=== PATIENT | female | born 1995 | race Caucasian/White ===

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

== ENCOUNTER → 2017-02-05 | Outpatient (CLI) | payer MEDICAID ==
[~2017-02-05] MED LIST changes: +PREN1TAB86 PO
--- NOTE | 2017-02-05 19:57 | Diagnostic Imaging Report ---
INDICATION: survey TECHNIQUE: Multiple real-time grayscale images were obtained over the gravid uterus. COMPARISON: None during this FINDINGS: heart rate is 143 beats per minute. The placenta is anterior. No placenta previa. The cervix is 3.4 CM in length and is closed. There is adequate amniotic fluid seen. Three-vessel cord, four-chamber view, stomach, bladder, spine, the kidneys, and intracranial structures appear unremarkable. The growth parameters are: Biparietal diameter: 21 weeks and 3 days Head circumference: 22 weeks and 3 days Abdominal circumference: 23 weeks and one day Femur length: 22 weeks and 3 days These average at: 22 weeks and 3 days This compares to gestational age of 21 weeks and 4 days based on provided SONIDO of 06/14/2017. IMPRESSION: Live intrauterine . Completed survey. Dictated by: Dictated on workstation # [id number]
== END ==
LOC: RAD 09:52
PROVIDERS: ATTEND Obstetrics & Gynecology
DX: Z36.87 Encounter for antenatal screening for uncertain dates (principal); Z3A.22 22 weeks gestation of pregnancy
CPT/HCPCS: 76805

== ENCOUNTER 2017-03-13 13:48 | Inpatient (IN) | payer MEDICAID ==
[~2017-03-13] VITALS: Ht 172.7 cm; Wt 76.2 kg
[~2017-03-13 13:48] MED LIST changes: +NAPR-1070 PO; -NAPR550T PO; +OXYC-465 PO
[2017-03-13 14:08] VITALS: BP 105/55
[2017-03-13 14:44] LABS: BILIRUBIN,URINE NEGATIVE (NEGATIVE); KETONES,URINE NEGATIVE (NEGATIVE); LEUKOCYTE ESTERASE ,URINE 1+ (NEGATIVE); NITRITE,URINE NEGATIVE (NEGATIVE); PH,URINE 6.5 (5-9); PROTEIN,URINE NEGATIVE (NEGATIVE); UROBILINOGEN,URINE 4 MG/DL (NORMAL)
[2017-03-13 14:53] LABS: SQUAMOUS EPITHELIAL CELL,UR 0-2 /HPF; WBC,URINE 0-2 /HPF
[2017-03-13] MEDS ORDERED: NS IV 1000 ML 1,000 ML ONE (15:07)
[2017-03-13] MEDS ORDERED: NS 1000 ML IV BAG IV SCH (15:15)
[2017-03-13] MEDS ORDERED: NS IV 1000 ML 1,000 ML IV ONE (15:15)
[2017-03-13] MEDS ORDERED: morphine INJ 10 MG/ML 1ML (SYR OR VIAL) IVP ONE (15:15)
[2017-03-13] MEDS ORDERED: PROMETHAZINE INJ 25 MG/ML (PHENERGAN) AMP IVP ONE (15:15)
[2017-03-13 15:40] VITALS: BP 105/64
[2017-03-13 15:42] LABS: BASOPHILS # (AUTO) 0.1 10^3/uL (0.0-0.1); BASOPHILS % (AUTO) 0 % (0-10); EOSINOPHILS # (AUTO) 0.1 10^3/uL (0.0-0.3); EOSINOPHILS % (AUTO) 1 % (0-10); LYMPHOCYTES # (AUTO) 1.9 X 10^3 (1.0-4.0); LYMPHOCYTES % (AUTO) 15 % (12-44); MEAN CORPUSCULAR HEMOGLOBIN 33 PG (25-34); MEAN CORPUSCULAR HGB CONC 36 G/DL (32-36); MEAN CORPUSCULAR VOLUME 92 FL (80-99); MEAN PLATELET VOLUME 10.2 FL (7.4-10.4); MONOCYTES # (AUTO) 0.8 X 10^3 (0.0-1.0); MONOCYTES % (AUTO) 6 % (0-12); NEUTROPHILS # (AUTO) 9.7 X 10^3 (1.8-7.8); NEUTROPHILS % (AUTO) 77 % (42-75); PLATELET COUNT 279 10^3/uL (130-400); RED BLOOD COUNT 3.57 10^6/uL (4.35-5.85); RED CELL DISTRIBUTION WIDTH 12.8 % (10.0-14.5); WHITE BLOOD COUNT 12.5 10^3/uL (4.3-11.0)
[2017-03-13 16:12] LABS: ALANINE AMINOTRANSFERASE 14 U/L (0-55); ALBUMIN 3.5 GM/DL (3.2-4.5); ANION GAP 8 MMOL/L (5-14); ASPARTATE AMINO TRANSFERASE 14 U/L (5-34); BILIRUBIN,TOTAL 0.7 MG/DL (0.1-1.0); BLOOD UREA NITROGEN 10 MG/DL (7-18); BUN/CREATININE RATIO 21; CALCIUM 9.3 MG/DL (8.5-10.1); CARBON DIOXIDE 22 MMOL/L (21-32); CHLORIDE 106 MMOL/L (98-107); CREATININE SERUM 0.48 MG/DL (0.60-1.30); GFR ESTIMATED > 60; GLUCOSE 75 MG/DL (70-105); POTASSIUM 3.8 MMOL/L (3.6-5.0); SODIUM 136 MMOL/L (135-145); TOTAL PROTEIN 6.7 GM/DL (6.4-8.2)
[2017-03-13] MEDS: NS IV 1000 ML 1,000 ML IV SCH ×2 (16:47→20:32)
[2017-03-13] MEDS ORDERED: INFLUENZA TRIvalent 2017-2018 0.5 ML/45 MCG SYR IM ONE (18:00)
[2017-03-13] MEDS ORDERED: CATHETER FLUSH 10 ML SYR IV PRN (18:00)
[2017-03-13 20:30] VITALS: BP 86/40
[2017-03-13] MEDS: PROMETHAZINE INJ 25 MG/ML (PHENERGAN) AMP IVP PRN (20:31)
[2017-03-13] MEDS ORDERED: KETOROLAC 30 MG/ML VIAL IVP ONE (21:15)
[2017-03-13] MEDS ORDERED: TAMSULOSIN 0.4 MG (FLOMAX) CAP PO SCH (21:15)
--- NOTE | 2017-03-13 21:22 | History & Physical-OB/GYN ---
History of Present Illness History of Present Illness Reason for visit/HPI right flank pain, history of nephrolithiasis in Date of Admission Mar 13, 2017 at 13:48 Date Seen by Provider: Mar 13, 2017 Time Seen by Provider: 21:00 I consulted on this patient on 03/13/17 21:21 Attending Physician Mis Chaudhari DO Admitting Physician No,Local Physician Consult The is a 22 year old at 26+ weeks who presents with increasing right flank pain. Diagnosed with nephrolithiasis in at 25 weeks. Admitted then for IVF, IV antiemetics and pain medication. Sent home with pain medications. She has passed some debris but not the stone. She has not had hematuria. She does have nausea and has had emesis. Presented because pain has worsened. Allergies and Home Medications Allergies Coded Allergies: No Known Drug Allergies (Unverified , 08/14/15) Home Medications Oxycodone HCl/Acetaminophen 1 Each Tablet, 1 TAB PO Q4H PRN for PAIN, #30 Prescribed by: MIS CHAUDHARI on 03/16/17 0820 Vit W-Ca,Fe,FA(<1 mg) 1 Each Tablet, 1 EACH PO DAILY, (Reported) Tamsulosin HCl 0.4 Mg Cap, 0.4 MG PO q 6pm for 7 Days, #7 Prescribed by: MIS CHAUDHARI on 03/16/17 0820 Past Vzamtml-Hhfepm-Yvoesx Hx Patient Social History Smoking Status: Former Smoker Former Smoker, Quit: Jan 12, 2016 Type Used: Cigarettes Physical Abuse Screen: No Sexual Abuse: No Recent Foreign Travel: No Contact w/other who traveled: No Recent Hopitalizations: No Recent Infectious Disease Expo: No Immunizations Up To Date Pediatric: Yes Date of Influenza Vaccine: Jan 11, 2015 Seasonal Allergies Seasonal Allergies: No Surgeries Yes (L WRIST, RIGHT EAR RECONTRUCTION ) Ear Surgery, Orthopedic Respiratory No Cardiovascular Yes (SMALL HEART MURMUR) Neurological No Reproductive System Expected Date of Delivery: Mar 13, 2017 Hx : 2 Hx Para: 0 Hx Reproductive Disorders: Yes (left ovarian cyst) Sexually Transmitted Disease: No HIV/AIDS: No Female Reproductive Disorders: Menstrual Problems, Ovarian Cyst Genitourinary Yes UTI-Chronic Gastrointestinal Yes (REFLUX WHEN EATS SPICY FOOD ) Gastroesophageal Reflux Musculoskeletal Yes Chronic Back Pain Endocrine History of Endocrine Disorders: No HEENT History of HEENT Disorders: No Loss of Vision: Denies Hearing Impairment: Hard of Hearing Cancer No Psychosocial History of Psychiatric Problem: Yes Behavioral Health Disorders: Depression Integumentary History of Skin or Integumenta: Yes Skin/Integumentary Disorders: Eczema Blood Transfusions History of Blood Disorders: No Adverse Reaction to a Blood Tr: No Family Medical History Significant Family History: No Pertinent Family Hx Constitutional: no symptoms reported Physical Exam Physical Exam Vital Signs Vital Signs Date Time Temp Pulse Resp B/P (MAP) Pulse Ox O2 Delivery O2 Flow Rate FiO2 03/16/17 11:27 81 18 123/71 99 Room Air 03/16/17 09:54 81 18 123/71 03/16/17 08:55 98.5 81 18 123/71 (88) 99 Room Air 03/16/17 04:17 98.1 65 18 105/68 (80) 99 Room Air 03/15/17 23:50 97.8 84 18 111/64 (80) 97 Room Air 03/15/17 19:54 97.5 75 18 100/59 (73) 98 Room Air I & O 03/16/17 07:00 Intake Total 5490 ml Output Total 4375 ml Balance 1115 ml Capillary Refill : Labs General Appearance: Moderate Distress Respiratory: Chest Non Tender, Lungs Clear Cardiovascular: Regular Rate, Rhythm, No Edema Abdominal: normal bowel sounds, tenderness (right flank but no TTP. Mild CVA pain) Gynecology/General: Other (NE) Comments Good FHT Assessment/Plan Assessment and Plan nephrolithiasis in Admitted for IV fluid rehydration and antiemetics. Hyperhydration with IV fluids. Iv Morphine. Phenergan IV. Will repeat studies as needed but no need for US or CT at this time due to known stone. Last was 6 mm and non obstructed. Right hydronephrosis and hydroureter. Problems: MIS CHAUDHARI DO Mar 13, 2017 21:22
[2017-03-13] MEDS ORDERED: NIFEdipine ER 30 MG (PROCARDIA XL) TAB PO ONE (22:15)
[2017-03-13] MEDS ORDERED: NIFEdipine ER 60 MG (PROCARDIA XL) TAB PO ONE (22:26)
[2017-03-14 00:16] VITALS: BP 102/60
[2017-03-14] MEDS: NS IV 1000 ML 1,000 ML IV SCH ×6 (01:06→21:08)
[2017-03-14 04:10] VITALS: BP 110/63
[2017-03-14 08:42] VITALS: BP 108/53
[2017-03-14] MEDS: morphine INJ 10 MG/ML 1ML (SYR OR VIAL) IVP PRN ×2 (09:03→22:55)
--- NOTE | 2017-03-14 09:23 | Progress Note-Standard ---
Standard Progress Note Progress Notes/Assess & Plan Date Seen by Provider: Mar 14, 2017 Time Seen by Provider: 09:10 Progress/Assessment & Plan Continued pain. Has moved to the flank but more in the front. Some nausea requiring promethazine and received Morphine x 2 doses yesterday. Tried to start flomax but not on formulary. Will start Uroxatrol today but watch for hypotension. Category B. Also start Rocephin. Vital Signs 03/14/17 04:10 Temp 98.4 Pulse 71 Resp 18 B/P (MAP) 110/63 (79) Pulse Ox 99 O2 Delivery Room Air Nephrolithiasis in continue IVF hyperhydration Start alpha deandra Rocephin pain management. Hope to get her home tomorrow MIS CHAUDHARI DO Mar 14, 2017 09:23
[2017-03-14] MEDS ORDERED: cefTRIAXone INJECTION 1,000 MG in NS (IVPB) 50 ML IV ONE (09:30)
[2017-03-14] MEDS: ALFUZOSIN HCL 10 MG TAB (UROXATRAL) PO SCH ×2 (10:29→18:27)
[2017-03-14 13:20] VITALS: BP 111/61
[2017-03-14 16:07] VITALS: BP 110/66
[2017-03-14 20:00] VITALS: BP 116/64
[2017-03-14] MEDS: PROMETHAZINE INJ 25 MG/ML (PHENERGAN) AMP IVP PRN (22:18)
[2017-03-15] MEDS: NS IV 1000 ML 1,000 ML IV SCH ×6 (01:23→22:00)
[2017-03-15 02:30] VITALS: BP 108/60
[2017-03-15 09:00] VITALS: BP 120/56
[2017-03-15] MEDS ORDERED: HYDROcodone/APAP 7.5 MG/325 MG (LORTAB, LORCET PLUS) TABLET PO PRN (09:15)
[2017-03-15] MEDS ORDERED: cefTRIAXone 1 GM (ROCEPHIN) VIAL ONE (09:44)
[2017-03-15] MEDS ORDERED: NS (IVPB) 50 ML ONE (09:45)
[2017-03-15] MEDS: PROMETHAZINE INJ 25 MG/ML (PHENERGAN) AMP IVP PRN ×2 (11:22→19:48)
--- NOTE | 2017-03-15 12:46 | Progress Note-Standard ---
Standard Progress Note Progress Notes/Assess & Plan Date Seen by Provider: Mar 15, 2017 Time Seen by Provider: 12:45 Progress/Assessment & Plan NSTs reactive Has received 2 doses of promethezine. Changed to po lortab. States pain has moved more to the front but hasn't passed the stone. She is very sleepy right now due to recent promethazine. Has nausea with pain but also after pain meds. Encouraged promethazine. Vital Sign - Last 12Hours 03/15/17 03/15/17 02:30 09:00 Temp 99.6 98.2 Pulse 79 65 Resp 18 18 B/P (MAP) 108/60 (76) 120/56 (77) O2 Delivery Room Air Room Air right CVA tenderness NST reactive Nephrolithiasis in Plan dc home in am after an additional dose of alpha deandra, Rocephin and IV fluids. Continue pain meds and antiemetic. MIS CHAUDHARI DO Mar 15, 2017 12:46
[2017-03-15 17:00] VITALS: BP 114/69
[2017-03-15] MEDS: ALFUZOSIN HCL 10 MG TAB (UROXATRAL) PO SCH (17:03)
[2017-03-15 19:54] VITALS: BP 100/59
[2017-03-15 23:50] VITALS: BP 111/64
[2017-03-16] MEDS: NS IV 1000 ML 1,000 ML IV SCH ×2 (02:00→05:56)
[2017-03-16 04:17] VITALS: BP 105/68
--- NOTE | 2017-03-16 08:18 | Progress Note-Standard ---
Standard Progress Note Progress Notes/Assess & Plan Date Seen by Provider: Mar 16, 2017 Time Seen by Provider: 08:15 Progress/Assessment & Plan Overnight somewhat better. Only one episode of emesis. Did not request pain medications. Will plan to dc today on flomax and follow up in the office this week. Vital Sign - Last 12Hours 03/15/17 03/16/17 23:50 04:17 Temp 97.8 98.1 Pulse 84 65 Resp 18 18 B/P (MAP) 111/64 (80) 105/68 (80) Pulse Ox 97 99 O2 Delivery Room Air Room Air Nephrolithiasis in MIS CHAUDHARI DO Mar 16, 2017 08:18
[2017-03-16] MEDS ORDERED: TAMS0.4C98 PO (08:20)
[2017-03-16] MEDS ORDERED: OXYC-465 PO (08:20)
--- NOTE | 2017-03-16 08:25 | Discharge Inst-Women's Service ---
Discharge Inst-Women's Serv Depart Medication/Instructions New, Converted or Re-Newed RX: Other (Transmitted to pharmacy) Instructions continue flomax 1 po daily until gone Continue maximum fluid intake (at least 80 ml daily water) strain urine Final Diagnosis nephrolithiasis in (second trimester) Consults/Follow Up Additional Follow Up: Yes (has appt on Friday 03/23. Keep that appointment. Call [phone] if problems. ) Activity Activity: Activity as Tolerated Driving Instructions: You May Drive NO SMOKING: NO SMOKING Nothing Inside Vagina: No Douching, No [place], No Tampons Diet Discharge Diet: No Restrictions Symptoms to Report to : Numbness/Tingling, Bleeding Excessive, Pain Increased, Fever Over 101 Degrees F For Any Problems or Questions: Contact Your Physician MIS CHAUDHARI DO Mar 16, 2017 08:25
[2017-03-16] MEDS ORDERED: cefTRIAXone 1 GM (ROCEPHIN) VIAL ONE (08:44)
[2017-03-16] MEDS ORDERED: NS (IVPB) 50 ML ONE (08:45)
[2017-03-16 08:55] VITALS: BP 123/71
[2017-03-16] MEDS ORDERED: cefTRIAXone INJECTION 1,000 MG in NS (IVPB) 50 ML IV ONE (09:00)
[2017-03-16] MEDS ORDERED: KETOROLAC 30 MG/ML VIAL IVP ONE (09:00)
[2017-03-16 09:54] VITALS: BP 123/71
[2017-03-16 11:27] VITALS: BP 123/71
--- NOTE | 2017-03-16 19:29 | Discharge Summary ---
Diagnosis/Chief Complaint Date of Admission Mar 13, 2017 at 13:48 Date of Discharge Mar 16, 2017 at 11:27 Discharge Date: Mar 16, 2017 Admission Diagnosis Admission Diagnosis nephrolithiasis in Admitted for IV fluid rehydration and antiemetics. Hyperhydration with IV fluids. Iv Morphine. Phenergan IV. Will repeat studies as needed but no need for US or CT at this time due to known stone. Last was 6 mm and non obstructed. Right hydronephrosis and hydroureter. Reason Hospital Visit right flank pain, history of nephrolithiasis in Discharge Summary Procedures None. Discharge Physical Examination Allergies: Coded Allergies: No Known Drug Allergies (Unverified , 08/14/15) Vitals & I&Os Vital Signs Date Time Temp Pulse Resp B/P (MAP) Pulse Ox O2 Delivery O2 Flow Rate FiO2 03/16/17 11:27 81 18 123/71 99 Room Air 03/16/17 08:55 98.5 Discharge Home Medications Reviewed and agree with Discharge Medication list on patient's Discharge Instruction sheet Instructions to Patient/Family Please see electronic discharge instructions given to patient. MIS CHAUDHARI DO Mar 16, 2017 19:28
== END 2017-03-16 11:27 | disposition home or self-care (01) | DRG 781 ==
LOC: LDRP 13:48
PROVIDERS: ADMIT Obstetrics & Gynecology; ATTEND Obstetrics & Gynecology
DX: O26.892 Other specified pregnancy related conditions, second trimester (principal); N20.0 Calculus of kidney; O99.332 Smoking (tobacco) complicating pregnancy, second trimester; F17.210 Nicotine dependence, cigarettes, uncomplicated; Z3A.26 26 weeks gestation of pregnancy
CPT/HCPCS: 36415; 80053; 81000; 85025

== ENCOUNTER 2017-04-03 12:50 | Outpatient (CLI) | payer MEDICAID ==
[~2017-04-03] VITALS: Ht 172.7 cm; Wt 76.2 kg
[~2017-04-03 12:50] MED LIST changes: +TAMS0.4C98 PO
[2017-04-03 13:20] VITALS: BP 106/59
[2017-04-03] MEDS ORDERED: NS IV 1000 ML 1,000 ML ONE (13:23)
--- NOTE | 2017-04-03 14:20 | History & Physical-OB ---
OB - Chief Complaint & HPI Date/Time Date of Admission: Date of Admission: 04/03/2017 Time Seen by Provider: 14:20 Chief Complaint/History OB-Reason for Admission/Chief: Hx : 1 Hx Para: 0 Gestational Age in Weeks: 28 Other reason for admission: Patient with known history of nephrolithiasis presents in increasing right pelvic pain Admission Nurse Assessment Rev: Yes Allergies and Home Medications Allergies Coded Allergies: No Known Drug Allergies (Unverified , 08/14/15) Home Medications Oxycodone HCl/Acetaminophen 1 Each Tablet, 1 TAB PO Q4H PRN for PAIN, #30 Prescribed by: MIS CHAUDHARI on 03/16/17 0820 Vit W-Ca,Fe,FA(<1 mg) 1 Each Tablet, 1 EACH PO DAILY, (Reported) Tamsulosin HCl 0.4 Mg Cap, 0.4 MG PO q 6pm for 7 Days, #7 Prescribed by: MIS CHAUDHARI on 03/16/17 0820 OB - History Hx of Present Care: Yes Ultrasounds: Normal mid trimester US Obstetrical Complications: None Medical Complications: None Delivery History Hx Blood Disorders: No Adverse Rxn to Tranfusion: No Patient Past Medical History nephrolithiasis Social History/Family History HIV/AIDS: No Sexually Transmitted Disease: No Immunizations Date of Influenza Vaccine: Jan 11, 2015 OB - Admission Exam Physical Exam HEENT: NCAT Heart: Rhythm Normal Lungs: Clear Abdomen: Non tender (no CVA tenderness) Extremities: Normal Reflexes: Normal Heart Rate: 130's Accelerations: Accelerations Present Decelerations: No Decelerations Short Term Variability: Present Fdc Variability: Average (6-25) Contractions on Admission: None OB - Assessment/Plan/Diagnosis Assessment Assessment: other Plan Other Plan Treat pain with Morphine prn, IVF bolus. Checking for obstructive uropathy via CMP and US Will treat symptoms as needed if no obstructive Uropathy, otherwise will transfer to [facility]. Discharge Diagnosis Diagnosis: 22 yo @ 28 weeks Nephrolithisis ANA BRANNON DO Apr 03, 2017 2:20 pm
[2017-04-03 14:30] LABS: BASOPHILS % (AUTO) 0 % (0-10); EOSINOPHILS # (AUTO) 0.1 10^3/uL (0.0-0.3); EOSINOPHILS % (AUTO) 1 % (0-10); LYMPHOCYTES # (AUTO) 1.7 X 10^3 (1.0-4.0); LYMPHOCYTES % (AUTO) 19 % (12-44); MEAN CORPUSCULAR HEMOGLOBIN 32 PG (25-34); MEAN CORPUSCULAR HGB CONC 36 G/DL (32-36); MEAN CORPUSCULAR VOLUME 91 FL (80-99); MEAN PLATELET VOLUME 10.5 FL (7.4-10.4); MONOCYTES # (AUTO) 0.7 X 10^3 (0.0-1.0); MONOCYTES % (AUTO) 8 % (0-12); NEUTROPHILS # (AUTO) 6.5 X 10^3 (1.8-7.8); NEUTROPHILS % (AUTO) 72 % (42-75); PLATELET COUNT 233 10^3/uL (130-400); RED BLOOD COUNT 3.33 10^6/uL (4.35-5.85)
[2017-04-03] MEDS ORDERED: morphine INJ 10 MG/ML 1ML (SYR OR VIAL) IVP PRN (14:30)
[2017-04-03] MEDS ORDERED: NS IV 1000 ML 1,000 ML IV SCH (14:30)
[2017-04-03] MEDS ORDERED: CATHETER FLUSH 10 ML SYR IV PRN (14:45)
[2017-04-03 14:47] LABS: ALANINE AMINOTRANSFERASE 10 U/L (0-55); ALBUMIN 3.3 GM/DL (3.2-4.5); ANION GAP 9 MMOL/L (5-14); ASPARTATE AMINO TRANSFERASE 10 U/L (5-34); BILIRUBIN,TOTAL 0.6 MG/DL (0.1-1.0); BLOOD UREA NITROGEN 8 MG/DL (7-18); BUN/CREATININE RATIO 17; CALCIUM 8.4 MG/DL (8.5-10.1); CARBON DIOXIDE 20 MMOL/L (21-32); CHLORIDE 108 MMOL/L (98-107); CREATININE SERUM 0.47 MG/DL (0.60-1.30); GFR ESTIMATED > 60; GLUCOSE 76 MG/DL (70-105); POTASSIUM 3.5 MMOL/L (3.6-5.0); SODIUM 137 MMOL/L (135-145); TOTAL PROTEIN 5.8 GM/DL (6.4-8.2)
[2017-04-03 14:48] VITALS: BP 109/69
[2017-04-03] MEDS ORDERED: diphenhydrAMINE 50 MG/ML INJ (BENADRYL) IVP NR (15:00)
--- NOTE | 2017-04-03 16:56 | Diagnostic Imaging Report ---
INDICATION: Renal calculus and hydronephrosis. EXAMINATION: Ultrasonography of the kidneys was performed, bilaterally. COMPARISON: Examination of 02/24/2017. FINDINGS: Right and left kidneys measure 12.0 x 6.4 x 6.5 cm and 12.0 x 6.7 x 5.8 cm, respectively. Similar to the previous study, there is moderate right hydronephrosis with mild left hydronephrosis. Echogenic focus is seen superiorly in the right kidney without shadowing. This measures approximately 0.7 cm and may represent calculus. There is no evidence of perinephric fluid collection. Left ureteric jet was confirmed without visualization of the right ureteric jet. IMPRESSION: 1. Mild left and moderate right hydronephrosis persists with an approximately 0.7 cm echogenic focus in the upper pole of the right kidney which may represent calculus. 2. Right ureteric jet was not visualized and patency to the level of the bladder cannot be confirmed. Dictated by: Dictated on workstation # [id number]
[2017-04-03] MEDS ORDERED: cefTRIAXone INJECTION 1,000 MG in NS (IVPB) 50 ML IV ONE (17:00)
[2017-04-04] MEDS ORDERED: INFLUENZA TRIvalent 2017-2018 0.5 ML/45 MCG SYR IM ONE (09:15)
== END 2017-04-03 18:55 | disposition home or self-care (01) ==
LOC: LDRP 12:50 → WSo 12:50
PROVIDERS: ATTEND Obstetrics & Gynecology
DX: O26.893 Other specified pregnancy related conditions, third trimester (principal); N20.0 Calculus of kidney; Z3A.28 28 weeks gestation of pregnancy
CPT/HCPCS: 36415; 76770; 80053; 85025; 96361; 96374; 96375; 99213

== ENCOUNTER → 2017-05-05 | Outpatient (CLI) | payer MEDICAID ==
[~2017-05-05] MED LIST changes: +ACHD5005 PO; -HYDR-3812 PO
--- NOTE | 2017-05-05 15:26 | Diagnostic Imaging Report ---
INDICATION: Small for gestational age. TECHNIQUE: Multiple real-time grayscale images were obtained over the gravid uterus. COMPARISON: None. FINDINGS: There is a single live fetus in a cephalic presentation. The placenta is anterior. The amniotic fluid volume is normal. heart rate is recorded at 155 beats per minute. Biometrical measurements are as follows: Biparietal 9.3 cm, age 37 weeks 6 days. Head circumference 31.76 cm, age 35 weeks 5 days. Abdominal circumference 31.49 cm, age 35 weeks 3 days. Femur length 6.5 cm, age 33 weeks 4 days. Sonographic estimate age: 35 weeks 5 days. Sonographic estimated date of delivery: 06/04/2017. Estimated Weight: 2615 gm (+/- 382 gm). LMP percentile: 71%. heart rate: 155 beats per minute. number: 1 of 1. IMPRESSION: Single live IUP at approximately 35 to 36 weeks gestational age with an estimated date of confinement sonographically of 06/04/2017. Dictated by: Dictated on workstation # [id number]
== END ==
LOC: RAD 12:52
PROVIDERS: ATTEND Obstetrics & Gynecology
DX: O36.5930 Maternal care for other known or suspected poor fetal growth, third trimester, not applicable or unspecified (principal); Z3A.35 35 weeks gestation of pregnancy
CPT/HCPCS: 76816

== ENCOUNTER 2017-05-29 00:15 | Outpatient (CLI) | payer MEDICAID ==
[~2017-05-29] VITALS: Ht 172.7 cm; Wt 68.5 kg
[2017-05-29 00:33] VITALS: BP 133/90
[2017-05-29 00:54] VITALS: BP 125/81
[2017-05-29 01:12] VITALS: BP 107/71
[2017-05-29 01:23] LABS: BILIRUBIN,URINE NEGATIVE (NEGATIVE); COLOR,URINE YELLOW; GLUCOSE, URINE (UA) NEGATIVE (NEGATIVE); KETONES,URINE 4+ (NEGATIVE); LEUKOCYTE ESTERASE ,URINE 1+ (NEGATIVE); NITRITE,URINE NEGATIVE (NEGATIVE); PH,URINE 6 (5-9); PROTEIN,URINE 2+ (NEGATIVE); UROBILINOGEN,URINE 1 MG/DL (NORMAL)
[2017-05-29 01:30] LABS: BACTERIA,URINE MODERATE /HPF; HYALINE CASTS, URINE RARE /LPF; RBC,URINE 0-2 /HPF
[2017-05-29 01:31] LABS: CLARITY,URINE SLIGHTLY CLOUDY
[2017-05-29 01:33] VITALS: BP 133/90
[2017-05-30] MEDS ORDERED: IBUP-1780 PO (09:44)
[2017-05-30] MEDS ORDERED: DOCU100C37 PO (09:44)
[2017-05-30] MEDS ORDERED: OXYC-465 PO (09:44)
--- NOTE | 2017-06-01 15:33 | Physician Query-Final Dx ---
JOSE ALFREDO YUSUF 06/01/17 1533: Clinic Account Progress/Dx Physician Query: Please give diagnosis Date of Service May 29, 2017 at 00:15 ANA BRANNON DO 06/02/17 0812: Clinic Account Progress/Dx DIAGNOSIS: Diagnosis 38 week IUP Contractions Vaginal discharge JOSE ALFREDO YUSUF Jun 01, 2017 15:33 ANA BRANNON DO Jun 02, 2017 08:12
== END 2017-05-29 02:00 | disposition home or self-care (01) ==
LOC: WSo 00:15 → LDRP 00:19 → WSo 02:00
PROVIDERS: ATTEND Obstetrics & Gynecology
DX: O47.1 False labor at or after 37 completed weeks of gestation (principal); O26.893 Other specified pregnancy related conditions, third trimester; N89.8 Other specified noninflammatory disorders of vagina; Z3A.38 38 weeks gestation of pregnancy
CPT/HCPCS: 81000; 87088; 99214

== ENCOUNTER 2017-05-30 08:40 | Inpatient (IN) | payer MEDICAID ==
[~2017-05-30] VITALS: Ht 172.7 cm; Wt 67.6 kg
[2017-05-30] VITALS (14 sets, daily range): BP systolic 96–148; BP diastolic 64–87
[2017-05-30] MEDS ORDERED: D5 LR IV SOLUTION 1,000 ML IV ONE (08:47)
[2017-05-30] MEDS ORDERED: MINERAL OIL CONCENTRATE 99.9% 15 ML UDC ONE (08:48)
[2017-05-30] MEDS ORDERED: OXYTOCIN/NORMAL SALINE 500 ML IV ONE (08:48)
[2017-05-30] MEDS ORDERED: LIDOCAINE/EPI 2% 1:200,00 (XYLOCAINE) 10 ML VIAL ONE ×2 (08:48→08:57)
[2017-05-30] MEDS ORDERED: OXYTOCIN/NORMAL SALINE 500 ML IV SCH (09:36)
--- NOTE | 2017-05-30 09:42 | History & Physical ---
History and Physical Date Seen by Provider: May 30, 2017 Time Seen by Provider: 09:38 Patient is a 22-year-old G2, white female with a due date of June 14, 2017 putting her just past 37 weeks gestation. She presented with complaint of contractions for almost 24 hours. She was completely dilated with a bulging bag at the introitus vertex presentation at the +3 to +4 station. Patient had care with Dr. Felipe I was called as doctor She was unavailable.. On arrival the patient was in acute distress pushing at times with no control the perineum with bulging membranes were bulging through the introitus and was obviously meconium we'll prepare for the delivery and the membranes ruptured spontaneously releasing a very thick meconium fluid. See the delivery note for the delivery. This patient's being complicated by multiple episodes of nephrolithiasis and renal colic. She denied rupture membranes bleeding on presentation her GBS culture was reported to be negative Allergies are none Occasions are vitamins Past medical history, past surgical history, obstetric history, family history, and social histories are per the antepartum record HEENT exam is normal Neck is supple no lymphadenopathy no thyromegaly Abdomen is gravid soft nontender nondistended Extreme show clubbing cyanosis. Presentation there was drained bulging at the introitus presenting part at a plus to +3+4 station patient was pushing with contractions Assessment and plan term just past 37 weeks gestation in patient who presented now with imminent precipitous delivery Term in advanced labor Allergies and Home Medications Allergies Coded Allergies: No Known Drug Allergies (Unverified , 08/14/15) Home Medications Vit W-Ca,Fe,FA(<1 mg) 1 Each Tablet, 1 EACH PO DAILY, (Reported) DYLAN CANTRELL MD May 30, 2017 9:42 am
[2017-05-30] MEDS ORDERED: IBUP-1780 PO (09:44)
[2017-05-30] MEDS ORDERED: OXYC-465 PO (09:44)
[2017-05-30] MEDS ORDERED: DOCU100C37 PO (09:44)
[2017-05-30] MEDS ORDERED: MEASLES,MUMPS,RUBELLA 1 EA INJ SC ONE (09:45)
[2017-05-30] MEDS ORDERED: TETANUS,DIPTH,PERTUSS P/F (BOOSTRIX) 0.5 ML VIAL IM ONE (09:45)
[2017-05-30] MEDS ORDERED: ONDANSETRON 4 MG/2 ML (SDV) Z0FRAN IVP PRN (09:45)
[2017-05-30] MEDS ORDERED: oxyCODONE/APAP 10/325MG (PERCOCET 10) TABLET PO PRN (09:45)
--- NOTE | 2017-05-30 09:45 | Discharge Instructions ---
Discharge Instructions Discharge Medications New, Converted or Re-Newed RX: RX on Chart Patient Instructions Patient Instructions: As directed Return to The Hospital For: As directed Activity & Diet Discharge Diet: No Restrictions Activity as Tolerated: No Orders-Post D/C & Referrals Follow Up Appt: Call to make follow up appt. for patient in [address] Felipe. Activity Per routine post vaginal delivery instructions. Please call in RX to patient pharmacy. Diet as tolerated Patient may shower or tub bathe as desired. DYLAN CANTRELL MD May 30, 2017 9:45 am
--- OUTSIDE RECORDS SUMMARY | 2017-05-30 09:57 | XMS REPORT | Continuity of Care Document ---
Author Author [facility] Organization [facility] Address Unknown Phone Unavailable Allergies Active Description Code Type Severity Reaction Onset Reported/Identified Relationship to Patient Clinical Status Yes No Known Drug Allergies [id number] Drug Allergy Unknown N/A 08/14/2015 Medications There is no data. Problems Date Dx Coded Attending Type Code Diagnosis Diagnosed By 07/02/2015 ANGELA BOYLE, LEO T Ot K59.00 CONSTIPATION, UNSPECIFIED 07/02/2015 ANGELA BOYLE, LEO T Ot N39.0 URINARY TRACT INFECTION, SITE NOT SPECIF 07/02/2015 ANGELA BOYLE, LEO T Ot N83.20 UNSPECIFIED OVARIAN CYSTS 07/03/2015 TORRI CAR Ot I88.0 NONSPECIFIC MESENTERIC LYMPHADENITIS 07/03/2015 TORRI CAR Ot N83.20 UNSPECIFIED OVARIAN CYSTS 07/03/2015 TORRI CAR Ot R10.32 LEFT LOWER QUADRANT PAIN 07/04/2015 ANGELA BOYLE, LEO T Ot K59.00 07/04/2015 ANGELA BOYLE, LEO T Ot N39.0 07/04/2015 ANGELA BOYLE, LEO T Ot N83.20 07/04/2015 ANGELA BOYLE, LEO T Ot K59.00 07/04/2015 ANGELA BOYLE, LEO T Ot N39.0 07/04/2015 ANGELA BOYLE, LEO T Ot N83.20 07/13/2015 SÁNCHEZ BARAHONA [employer] OPERATOR Ot N83.20 07/13/2015 SÁNCHEZ BARAHONA [employer] OPERATOR Ot R10.2 07/13/2015 SÁNCHEZ BARAHONA [employer] OPERATOR Ot N83.20 07/13/2015 SÁNCHEZ BARAHONA [employer] OPERATOR Ot R10.2 07/20/2015 TORRI CAR Ot I88.0 07/20/2015 TORRI CAR Ot N83.20 07/20/2015 TORRI CAR Ot R10.32 07/23/2015 JUN SÁNCHEZ W [employer] OPERATOR Ot N83.20 07/23/2015 JUN SÁNCHEZ W [employer] OPERATOR Ot R10.2 08/14/2015 CHAUDHARI DO, MIS C Ot N83.20 UNSPECIFIED OVARIAN CYSTS 08/14/2015 CHAUDHARI DO, MIS C Ot Z01.812 ENCOUNTER FOR PREPROCEDURAL LABORATORY E 08/14/2015 CHAUDHARI DO, MIS C Ot Z11.2 ENCOUNTER FOR SCREENING FOR OTHER BACTER 08/21/2015 CHAUDHARI DO, MIS C Ot N73.6 FEMALE PELVIC PERITONEAL ADHESIONS (POST 08/21/2015 CHAUDHARI DO, MIS C Ot N83.20 UNSPECIFIED OVARIAN CYSTS 08/29/2015 CHAUDHARI DO, MIS C Ot N73.6 FEMALE PELVIC PERITONEAL ADHESIONS (POST 08/29/2015 CHAUDHARI DO, MIS C Ot N83.20 UNSPECIFIED OVARIAN CYSTS 02/14/2016 JUN SÁNCHEZ W [employer] OPERATOR Ot N83.20 UNSPECIFIED OVARIAN CYSTS 02/14/2016 SÁNCHEZ BARAHONA [employer] OPERATOR Ot R10.2 PELVIC AND PERINEAL PAIN 02/14/2016 GIA BRYAN METABOLIC SPECIALIST Ot F17.210 NICOTINE DEPENDENCE, CIGARETTES, UNCOMPL 02/14/2016 GIA BRYAN METABOLIC SPECIALIST Ot R10.2 PELVIC AND PERINEAL PAIN 02/14/2016 GIA BRYAN METABOLIC SPECIALIST Ot R10.30 LOWER ABDOMINAL PAIN, UNSPECIFIED 02/15/2016 GIA BRYAN METABOLIC SPECIALIST Ot F17.210 NICOTINE DEPENDENCE, CIGARETTES, UNCOMPL 02/15/2016 GIA BRYAN METABOLIC SPECIALIST Ot R10.2 PELVIC AND PERINEAL PAIN 02/15/2016 GIA BRYAN METABOLIC SPECIALIST Ot R10.30 LOWER ABDOMINAL PAIN, UNSPECIFIED 02/20/2016 ÁSNCHEZ BARAHONA [employer] OPERATOR Ot N83.20 UNSPECIFIED OVARIAN CYSTS 02/20/2016 SÁNCHEZ BARAHONA [employer] OPERATOR Ot R10.2 PELVIC AND PERINEAL PAIN 02/20/2016 GIA BRYAN METABOLIC SPECIALIST Ot F17.210 NICOTINE DEPENDENCE, CIGARETTES, UNCOMPL 02/20/2016 GIA BRYAN METABOLIC SPECIALIST Ot R10.2 PELVIC AND PERINEAL PAIN 02/20/2016 GIA BRYAN METABOLIC SPECIALIST Ot R10.30 LOWER ABDOMINAL PAIN, UNSPECIFIED 02/21/2016 GIA BRYAN METABOLIC SPECIALIST Ot F17.210 NICOTINE DEPENDENCE, CIGARETTES, UNCOMPL 02/21/2016 GIA BRYAN METABOLIC SPECIALIST Ot R10.2 PELVIC AND PERINEAL PAIN 02/21/2016 GIA BRYAN METABOLIC SPECIALIST Ot R10.30 LOWER ABDOMINAL PAIN, UNSPECIFIED 02/28/2016 GIA BRYAN METABOLIC SPECIALIST Ot F17.210 NICOTINE DEPENDENCE, CIGARETTES, UNCOMPL 02/28/2016 GIA BRYAN APRN Ot R10.2 PELVIC AND PERINEAL PAIN 02/28/2016 GIA BRYAN APRN Ot R10.30 LOWER ABDOMINAL PAIN, UNSPECIFIED 12/24/2016 QUICK, SÁNCHEZ W [employer] OPERATOR Ot N83.20 UNSPECIFIED OVARIAN CYSTS 12/24/2016 QUICK, SÁNCHEZ W [employer] OPERATOR Ot R10.2 PELVIC AND PERINEAL PAIN 12/24/2016 QUICK, SÁNCHEZ W [employer] OPERATOR Ot N83.20 UNSPECIFIED OVARIAN CYSTS 12/24/2016 QUICK, SÁNCHEZ Son [employer] OPERATOR Ot R10.2 PELVIC AND PERINEAL PAIN 12/24/2016 GIA BRYAN APRN Ot F32.9 MAJOR DEPRESSIVE DISORDER, SINGLE EPISOD 12/24/2016 GIA BRYAN APRN Ot G89.29 OTHER CHRONIC PAIN 12/24/2016 GIA BRYAN APRN Ot K21.9 GASTRO-ESOPHAGEAL REFLUX DISEASE WITHOUT 12/24/2016 GIA BRYAN APRN Ot M54.9 DORSALGIA, UNSPECIFIED 12/24/2016 GIA BRYAN APRN Ot O23.42 UNSP INFCT OF URINARY TRACT IN 12/24/2016 GIA BRYAN APRN Ot O99.342 OTH MENTAL DISORDERS COMP , SEC 12/24/2016 GIA BRYAN APRN Ot O99.612 DISEASES OF THE DGSTV SYS COMP 12/24/2016 GIA BRYAN APRN Ot O99.89 OTH DISEASES AND CONDITIONS COMPL PREG/C 12/24/2016 GIA BRYAN APRN Ot R11.2 NAUSEA WITH VOMITING, UNSPECIFIED 12/24/2016 GIA BRYAN APRN Ot Z3A.15 15 WEEKS GESTATION OF 12/24/2016 GIA BRYAN APRN Ot Z87.2 PERSONAL HISTORY OF DISEASES OF THE SKIN 12/24/2016 GIA BRYAN APRN Ot Z87.42 PERSONAL HISTORY OF OTH DISEASES OF THE 02/17/2017 WATSON SYED MIS C Ot Z36.87 ENCOUNTER FOR SCREENING FOR UN 02/17/2017 WATSON SYEDMIS Ot Z3A.22 22 WEEKS GESTATION OF 02/25/2017 DYLAN CANTRELL MD Ot N20.0 CALCULUS OF KIDNEY 02/25/2017 DYLAN CANTRELL MD Ot O26.892 OTH RELATED CONDITIONS, SECOND 02/25/2017 DYLAN CANTRELL MD Ot Z3A.24 24 WEEKS GESTATION OF 03/16/2017 MIS CHAUDHARI DO Ot F17.210 NICOTINE DEPENDENCE, CIGARETTES, UNCOMPL 03/16/2017 MIS CHAUDHARI DO Ot N20.0 CALCULUS OF KIDNEY 03/16/2017 MIS CHAUDHARI DO Ot O26.892 OTH RELATED CONDITIONS, SECOND 03/16/2017 MIS CHAUDHARI DO Ot O99.332 SMOKING (TOBACCO) COMPLICATING 03/16/2017 MIS CHAUDHARI DO Ot Z3A.26 26 WEEKS GESTATION OF 03/19/2017 CHAUDHARI MIS Ot Z36.87 ENCOUNTER FOR SCREENING FOR UN 03/19/2017 CHAUDHARIMIS Son DO Ot Z3A.22 22 WEEKS GESTATION OF 04/03/2017 CLOVIS DO ANA S Ot N20.0 CALCULUS OF KIDNEY 04/03/2017 FENECH DO ANA S Ot O26.893 OTH RELATED CONDITIONS, THIRD 04/03/2017 FENECH DO ANA S Ot Z3A.28 28 WEEKS GESTATION OF 04/09/2017 FENECH DO ANA S Ot N20.0 CALCULUS OF KIDNEY 04/09/2017 FENECH DO, ANA S Ot O26.893 OTH RELATED CONDITIONS, THIRD 04/09/2017 FENECH DO ANA S Ot Z3A.28 28 WEEKS GESTATION OF 05/06/2017 MIS CHAUDHARI DO Ot O36.5930 MATERN CARE FOR OTH OR SUSP POOR FETL GR 05/06/2017 MIS CHAUDHARI DO Ot Z3A.35 35 WEEKS GESTATION OF 05/09/2017 DYLAN CANTRELL MD Ot N13.2 HYDRONEPHROSIS WITH RENAL AND URETERAL C 05/09/2017 DYLAN CANTRELL MD Latasha Ot 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 Results Test Result Range Urine beta human chorionic gonadotropin (hCG) measurement - 02/14/16 14:25 Urine beta human chorionic gonadotropin (hCG) measurement NEGATIVE NEGATIVE Complete urinalysis with reflex to culture - 02/14/16 14:25 Urine color determination YELLOW NRG Urine clarity determination CLEAR NRG Urine pH measurement by test strip 8 5-9 Specific gravity of urine by test strip 1.010 1.016- 1.022 Urine protein assay by test strip, semi-quantitative NEGATIVE NEGATIVE Urine glucose detection by automated test strip NEGATIVE NEGATIVE Erythrocytes detection in urine sediment by light microscopy 5+ NEGATIVE Urine ketones detection by automated test strip NEGATIVE NEGATIVE Urine nitrite detection by test strip NEGATIVE NEGATIVE Urine total bilirubin detection by test strip NEGATIVE NEGATIVE Urine urobilinogen measurement by automated test strip (mass/volume) NORMAL NORMAL Urine leukocyte esterase detection by dipstick NEGATIVE NEGATIVE Automated urine sediment erythrocyte count by microscopy (number/high power field) > [HPF] NRG Automated urine sediment leukocyte count by microscopy (number/high power field ) RARE NRG Bacteria detection in urine sediment by light microscopy TRACE NRG Squamous epithelial cells detection in urine sediment by light microscopy 10-25 NRG Crystals detection in urine sediment by light microscopy PRESENT NRG Casts detection in urine sediment by light microscopy NONE NRG Mucus detection in urine sediment by light microscopy NEGATIVE NRG Complete urinalysis with reflex to culture NO NRG Amorphous sediment detection in urine sediment by light microscopy FEW ERICKA PHOSPHATE NRG Complete blood count (CBC) with automated white blood cell (WBC) differential - 02/14/16 14:50 Blood leukocytes automated count (number/volume) 6.6 10*3/uL 4.3-11.0 Blood erythrocytes automated count (number/volume) 4.33 10*6/uL 4.35-5.85 Venous blood hemoglobin measurement (mass/volume) 13.0 g/dL 11.5-16.0 Blood hematocrit (volume fraction) 38 % 35-52 Automated erythrocyte mean corpuscular volume 87 [foz_us] 80-99 Automated erythrocyte mean corpuscular hemoglobin (mass per erythrocyte) 30 pg 25-34 Automated erythrocyte mean corpuscular hemoglobin concentration measurement ( mass/volume) 35 g/dL 32-36 Automated erythrocyte distribution width ratio 12.4 % 10.0-14.5 Automated blood platelet count (count/volume) 254 10*3/uL 130-400 Automated blood platelet mean volume measurement 10.0 [foz_us] 7.4-10.4 Automated blood neutrophils/100 leukocytes 57 % 42-75 Automated blood lymphocytes/100 leukocytes 32 % 12-44 Blood monocytes/100 leukocytes 9 % 0-12 Automated blood eosinophils/100 leukocytes 2 % 0-10 Automated blood basophils/100 leukocytes 0 % 0-10 Blood neutrophils automated count (number/volume) 3.8 10*3 1.8-7.8 Blood lymphocytes automated count (number/volume) 2.1 10*3 1.0-4.0 Blood monocytes automated count (number/volume) 0.6 10*3 0.0-1.0 Automated eosinophil count 0.1 10*3/uL 0.0-0.3 Automated blood basophil count (count/volume) 0.0 10*3/uL 0.0-0.1 ABO+Rh group - 02/14/16 14:50 ABO+Rh group BN NRG Serum or plasma choriogonadotropin measurement (units/volume) - 02/14/16 14:50 Serum or plasma choriogonadotropin measurement (units/volume) < m[iU ]/mL <5 Bacteria identification in genital specimen by aerobe culture - 02/14/16 16:00 FREE TEXT EXTERNAL PLUS NORMAL KIM NRG QUANTITY OF GROWTH Moderate Growth NRG Bacteria identification in genital specimen by aerobe culture [id number] NRG Neisseria gonorrhoeae DNA detection by probe and signal amplification method - 02/14/16 16:00 Gonorrhea amp DNA-urine Negative Negative Chlamydia trachomatis DNA detection by probe and signal amplification method - 02/14/16 16:00 Chlamydia trachomatis DNA detection by probe and target amplification method Negative Negative Microscopic examination by wet preparation - 02/14/16 16:00 WET PREP RESULTS NO CLUE CELLS OBSERVED NRG Complete blood count (CBC) with automated white blood cell (WBC) differential - 12/24/16 16:58 Blood leukocytes automated count (number/volume) 11.4 10*3/uL 4.3-11.0 Blood erythrocytes automated count (number/volume) 4.08 10*6/uL 4.35-5.85 Venous blood hemoglobin measurement (mass/volume) 12.6 g/dL 11.5-16.0 Blood hematocrit (volume fraction) 36 % 35-52 Automated erythrocyte mean corpuscular volume 88 [foz_us] 80-99 Automated erythrocyte mean corpuscular hemoglobin (mass per erythrocyte) 31 pg 25-34 Automated erythrocyte mean corpuscular hemoglobin concentration measurement ( mass/volume) 35 g/dL 32-36 Automated erythrocyte distribution width ratio 13.3 % 10.0-14.5 Automated blood platelet count (count/volume) 227 10*3/uL 130-400 Automated blood platelet mean volume measurement 10.8 [foz_us] 7.4-10.4 Automated blood neutrophils/100 leukocytes 75 % 42-75 Automated blood lymphocytes/100 leukocytes 18 % 12-44 Blood monocytes/100 leukocytes 6 % 0-12 Automated blood eosinophils/100 leukocytes 1 % 0-10 Automated blood basophils/100 leukocytes 0 % 0-10 Blood neutrophils automated count (number/volume) 8.6 10*3 1.8-7.8 Blood lymphocytes automated count (number/volume) 2.1 10*3 1.0-4.0 Blood monocytes automated count (number/volume) 0.7 10*3 0.0-1.0 Automated eosinophil count 0.1 10*3/uL 0.0-0.3 Automated blood basophil count (count/volume) 0.0 10*3/uL 0.0-0.1 Comprehensive metabolic panel - 12/24/16 16:58 Serum or plasma sodium measurement (moles/volume) 138 mmol/L 135-145 Serum or plasma potassium measurement (moles/volume) 3.8 mmol/L 3.6-5.0 Serum or plasma chloride measurement (moles/volume) 108 mmol/L 98-107 Carbon dioxide 23 mmol/L 21-32 Serum or plasma anion gap determination (moles/volume) 7 mmol/L 5-14 Serum or plasma urea nitrogen measurement (mass/volume) 13 mg/dL 7-18 Serum or plasma creatinine measurement (mass/volume) 0.63 mg/dL 0.60-1.30 Serum or plasma urea nitrogen/creatinine mass ratio 21 NRG Serum or plasma creatinine measurement with calculation of estimated glomerular filtration rate > NRG Serum or plasma glucose measurement (mass/volume) 80 mg/dL 70-105 Serum or plasma calcium measurement (mass/volume) 9.7 mg/dL 8.5-10.1 Serum or plasma total bilirubin measurement (mass/volume) 0.7 mg/dL 0.1-1.0 Serum or plasma alkaline phosphatase measurement (enzymatic activity/volume) 48 U/L 40-136 Serum or plasma aspartate aminotransferase measurement (enzymatic activity/ volume) 17 U/L 5-34 Serum or plasma alanine aminotransferase measurement (enzymatic activity/volume ) 17 U/L 0-55 Serum or plasma protein measurement (mass/volume) 7.1 g/dL 6.4-8.2 Serum or plasma albumin measurement (mass/volume) 4.0 g/dL 3.2-4.5 Fibrin D-dimer FEU measurement in platelet poor plasma (mass/volume) - 16:58 Fibrin D-dimer FEU measurement in platelet poor plasma (mass/volume) 0.47 ug/mL 0.00-0.49 Complete urinalysis with reflex to culture - 12/24/16 17:00 Urine color determination YELLOW NRG Urine clarity determination SLIGHTLY CLOUDY NRG Urine pH measurement by test strip 7 5-9 Specific gravity of urine by test strip 1.015 1.016- 1.022 Urine protein assay by test strip, semi-quantitative NEGATIVE NEGATIVE Urine glucose detection by automated test strip NEGATIVE NEGATIVE Erythrocytes detection in urine sediment by light microscopy NEGATIVE NEGATIVE Urine ketones detection by automated test strip NEGATIVE NEGATIVE Urine nitrite detection by test strip NEGATIVE NEGATIVE Urine total bilirubin detection by test strip NEGATIVE NEGATIVE Urine urobilinogen measurement by automated test strip (mass/volume) 4 mg/dL NORMAL Urine leukocyte esterase detection by dipstick 2+ NEGATIVE Automated urine sediment erythrocyte count by microscopy (number/high power field) NONE NRG Automated urine sediment leukocyte count by microscopy (number/high power field ) [HPF] NRG Bacteria detection in urine sediment by light microscopy FEW NRG Squamous epithelial cells detection in urine sediment by light microscopy 2-5 NRG Crystals detection in urine sediment by light microscopy PRESENT NRG Casts detection in urine sediment by light microscopy NONE NRG Mucus detection in urine sediment by light microscopy NEGATIVE NRG Complete urinalysis with reflex to culture YES NRG Amorphous sediment detection in urine sediment by light microscopy MOD ERICKA URATES NRG Bacterial urine culture - 12/24/16 17:00 URINE CULTURE RESULTS <10,000/ML NRG Complete urinalysis with reflex to culture - 02/24/17 10:50 Urine color determination RED NRG Urine clarity determination CLEAR NRG Urine pH measurement by test strip 5 5-9 Specific gravity of urine by test strip 1.025 1.016- 1.022 Urine protein assay by test strip, semi-quantitative 3+ NEGATIVE Urine glucose detection by automated test strip NEGATIVE NEGATIVE Erythrocytes detection in urine sediment by light microscopy 5+ NEGATIVE Urine ketones detection by automated test strip 3+ NEGATIVE Urine nitrite detection by test strip POSITIVE NEGATIVE Urine total bilirubin detection by test strip 1+ NEGATIVE Urine urobilinogen measurement by automated test strip (mass/volume) 4 mg/dL NORMAL Urine leukocyte esterase detection by dipstick 2+ NEGATIVE Automated urine sediment erythrocyte count by microscopy (number/high power field) TNTC NRG Automated urine sediment leukocyte count by microscopy (number/high power field ) [HPF] NRG Bacteria detection in urine sediment by light microscopy NEGATIVE NRG Squamous epithelial cells detection in urine sediment by light microscopy >50 NRG Crystals detection in urine sediment by light microscopy PRESENT NRG Casts detection in urine sediment by light microscopy NONE NRG Mucus detection in urine sediment by light microscopy NEGATIVE NRG Complete urinalysis with reflex to culture YES NRG Renal epithelial cells detection in urine sediment by light microscopy NONE NRG Calcium oxalate crystals detection in urine sediment by light microscopy RARE NRG Bacterial urine culture - 02/24/17 10:50 Bacterial urine culture NG NRG Blood CBC with ordered manual differential panel - 02/24/17 10:54 Blood leukocytes automated count (number/volume) 9.6 10*3/uL 4.3-11.0 Blood erythrocytes automated count (number/volume) 3.40 10*6/uL 4.35-5.85 Venous blood hemoglobin measurement (mass/volume) 11.0 g/dL 11.5-16.0 Blood hematocrit (volume fraction) 31 % 35-52 Automated erythrocyte mean corpuscular volume 91 [foz_us] 80-99 Automated erythrocyte mean corpuscular hemoglobin (mass per erythrocyte) 32 pg 25-34 Automated erythrocyte mean corpuscular hemoglobin concentration measurement ( mass/volume) 36 g/dL 32-36 Automated erythrocyte distribution width ratio 13.1 % 10.0-14.5 Automated blood platelet count (count/volume) 252 10*3/uL 130-400 Automated blood platelet mean volume measurement 10.4 [foz_us] 7.4-10.4 Automated blood neutrophils/100 leukocytes 68 % 42-75 Automated blood lymphocytes/100 leukocytes 22 % 12-44 Blood monocytes/100 leukocytes 1 % NRG Automated blood eosinophils/100 leukocytes 1 % 0-10 Automated blood basophils/100 leukocytes 0 % 0-10 Blood neutrophils automated count (number/volume) 6.6 10*3 1.8-7.8 Blood lymphocytes automated count (number/volume) 2.1 10*3 1.0-4.0 Blood monocytes automated count (number/volume) 0.8 10*3 0.0-1.0 Automated eosinophil count 0.1 10*3/uL 0.0-0.3 Automated blood basophil count (count/volume) 0.0 10*3/uL 0.0-0.1 Manual blood segmented neutrophils/100 leukocytes 71 % NRG Blood band neutrophils/100 leukocytes 0 % NRG Manual blood lymphocytes/100 leukocytes 25 % NRG Manual eosinophils/100 leukocytes in nose 1 % NRG Manual blood basophils/100 leukocytes 1 % NRG Blood lymphocytes variant/100 leukocytes 1 % NRG Blood erythrocyte morphology finding identification NORMAL NRG Blood toxic granules detection by light microscopy 1+ [facility] Comprehensive metabolic panel - 02/24/17 10:54 Serum or plasma sodium measurement (moles/volume) 137 mmol/L 135-145 Serum or plasma potassium measurement (moles/volume) 3.4 mmol/L 3.6-5.0 Serum or plasma chloride measurement (moles/volume) 108 mmol/L 98-107 Carbon dioxide 21 mmol/L 21-32 Serum or plasma anion gap determination (moles/volume) 8 mmol/L 5-14 Serum or plasma urea nitrogen measurement (mass/volume) 9 mg/dL 7-18 Serum or plasma creatinine measurement (mass/volume) 0.52 mg/dL 0.60-1.30 Serum or plasma urea nitrogen/creatinine mass ratio 17 NRG Serum or plasma creatinine measurement with calculation of estimated glomerular filtration rate > NRG Serum or plasma glucose measurement (mass/volume) 74 mg/dL 70-105 Serum or plasma calcium measurement (mass/volume) 8.7 mg/dL 8.5-10.1 Serum or plasma total bilirubin measurement (mass/volume) 0.5 mg/dL 0.1-1.0 Serum or plasma alkaline phosphatase measurement (enzymatic activity/volume) 58 U/L 40-136 Serum or plasma aspartate aminotransferase measurement (enzymatic activity/ volume) 39 U/L 5-34 Serum or plasma alanine aminotransferase measurement (enzymatic activity/volume ) 52 U/L 0-55 Serum or plasma protein measurement (mass/volume) 6.0 g/dL 6.4-8.2 Serum or plasma albumin measurement (mass/volume) 3.4 g/dL 3.2-4.5 Complete urinalysis with reflex to culture - 03/13/17 14:08 Urine color determination YELLOW NRG Urine clarity determination CLEAR NRG Urine pH measurement by test strip 6.5 5-9 Specific gravity of urine by test strip 1.020 1.016- 1.022 Urine protein assay by test strip, semi-quantitative NEGATIVE NEGATIVE Urine glucose detection by automated test strip NEGATIVE NEGATIVE Erythrocytes detection in urine sediment by light microscopy NEGATIVE NEGATIVE Urine ketones detection by automated test strip NEGATIVE NEGATIVE Urine nitrite detection by test strip NEGATIVE NEGATIVE Urine total bilirubin detection by test strip NEGATIVE NEGATIVE Urine urobilinogen measurement by automated test strip (mass/volume) 4 mg/dL NORMAL Urine leukocyte esterase detection by dipstick 1+ NEGATIVE Automated urine sediment erythrocyte count by microscopy (number/high power field) NONE NRG Automated urine sediment leukocyte count by microscopy (number/high power field ) [HPF] NRG Bacteria detection in urine sediment by light microscopy FEW NRG Squamous epithelial cells detection in urine sediment by light microscopy 0-2 NRG Crystals detection in urine sediment by light microscopy NONE NRG Casts detection in urine sediment by light microscopy NONE NRG Mucus detection in urine sediment by light microscopy NEGATIVE NRG Complete urinalysis with reflex to culture NO NRG Amorphous sediment detection in urine sediment by light microscopy MOD ERICKA URATES NRG Complete blood count (CBC) with automated white blood cell (WBC) differential - 03/13/17 15:25 Blood leukocytes automated count (number/volume) 12.5 10*3/uL 4.3-11.0 Blood erythrocytes automated count (number/volume) 3.57 10*6/uL 4.35-5.85 Venous blood hemoglobin measurement (mass/volume) 11.6 g/dL 11.5-16.0 Blood hematocrit (volume fraction) 33 % 35-52 Automated erythrocyte mean corpuscular volume 92 [foz_us] 80-99 Automated erythrocyte mean corpuscular hemoglobin (mass per erythrocyte) 33 pg 25-34 Automated erythrocyte mean corpuscular hemoglobin concentration measurement ( mass/volume) 36 g/dL 32-36 Automated erythrocyte distribution width ratio 12.8 % 10.0-14.5 Automated blood platelet count (count/volume) 279 10*3/uL 130-400 Automated blood platelet mean volume measurement 10.2 [foz_us] 7.4-10.4 Automated blood neutrophils/100 leukocytes 77 % 42-75 Automated blood lymphocytes/100 leukocytes 15 % 12-44 Blood monocytes/100 leukocytes 6 % 0-12 Automated blood eosinophils/100 leukocytes 1 % 0-10 Automated blood basophils/100 leukocytes 0 % 0-10 Blood neutrophils automated count (number/volume) 9.7 10*3 1.8-7.8 Blood lymphocytes automated count (number/volume) 1.9 10*3 1.0-4.0 Blood monocytes automated count (number/volume) 0.8 10*3 0.0-1.0 Automated eosinophil count 0.1 10*3/uL 0.0-0.3 Automated blood basophil count (count/volume) 0.1 10*3/uL 0.0-0.1 Comprehensive metabolic panel - 03/13/17 15:25 Serum or plasma sodium measurement (moles/volume) 136 mmol/L 135-145 Serum or plasma potassium measurement (moles/volume) 3.8 mmol/L 3.6-5.0 Serum or plasma chloride measurement (moles/volume) 106 mmol/L 98-107 Carbon dioxide 22 mmol/L 21-32 Serum or plasma anion gap determination (moles/volume) 8 mmol/L 5-14 Serum or plasma urea nitrogen measurement (mass/volume) 10 mg/dL 7-18 Serum or plasma creatinine measurement (mass/volume) 0.48 mg/dL 0.60-1.30 Serum or plasma urea nitrogen/creatinine mass ratio 21 NRG Serum or plasma creatinine measurement with calculation of estimated glomerular filtration rate > NRG Serum or plasma glucose measurement (mass/volume) 75 mg/dL 70-105 Serum or plasma calcium measurement (mass/volume) 9.3 mg/dL 8.5-10.1 Serum or plasma total bilirubin measurement (mass/volume) 0.7 mg/dL 0.1-1.0 Serum or plasma alkaline phosphatase measurement (enzymatic activity/volume) 69 U/L 40-136 Serum or plasma aspartate aminotransferase measurement (enzymatic activity/ volume) 14 U/L 5-34 Serum or plasma alanine aminotransferase measurement (enzymatic activity/volume ) 14 U/L 0-55 Serum or plasma protein measurement (mass/volume) 6.7 g/dL 6.4-8.2 Serum or plasma albumin measurement (mass/volume) 3.5 g/dL 3.2-4.5 Complete blood count (CBC) with automated white blood cell (WBC) differential - 04/03/17 13:50 Blood leukocytes automated count (number/volume) 9.0 10*3/uL 4.3-11.0 Blood erythrocytes automated count (number/volume) 3.33 10*6/uL 4.35-5.85 Venous blood hemoglobin measurement (mass/volume) 10.8 g/dL 11.5-16.0 Blood hematocrit (volume fraction) 30 % 35-52 Automated erythrocyte mean corpuscular volume 91 [foz_us] 80-99 Automated erythrocyte mean corpuscular hemoglobin (mass per erythrocyte) 32 pg 25-34 Automated erythrocyte mean corpuscular hemoglobin concentration measurement ( mass/volume) 36 g/dL 32-36 Automated erythrocyte distribution width ratio 13.0 % 10.0-14.5 Automated blood platelet count (count/volume) 233 10*3/uL 130-400 Automated blood platelet mean volume measurement 10.5 [foz_us] 7.4-10.4 Automated blood neutrophils/100 leukocytes 72 % 42-75 Automated blood lymphocytes/100 leukocytes 19 % 12-44 Blood monocytes/100 leukocytes 8 % 0-12 Automated blood eosinophils/100 leukocytes 1 % 0-10 Automated blood basophils/100 leukocytes 0 % 0-10 Blood neutrophils automated count (number/volume) 6.5 10*3 1.8-7.8 Blood lymphocytes automated count (number/volume) 1.7 10*3 1.0-4.0 Blood monocytes automated count (number/volume) 0.7 10*3 0.0-1.0 Automated eosinophil count 0.1 10*3/uL 0.0-0.3 Automated blood basophil count (count/volume) 0.0 10*3/uL 0.0-0.1 Comprehensive metabolic panel - 04/03/17 13:50 Serum or plasma sodium measurement (moles/volume) 137 mmol/L 135-145 Serum or plasma potassium measurement (moles/volume) 3.5 mmol/L 3.6-5.0 Serum or plasma chloride measurement (moles/volume) 108 mmol/L 98-107 Carbon dioxide 20 mmol/L 21-32 Serum or plasma anion gap determination (moles/volume) 9 mmol/L 5-14 Serum or plasma urea nitrogen measurement (mass/volume) 8 mg/dL 7-18 Serum or plasma creatinine measurement (mass/volume) 0.47 mg/dL 0.60-1.30 Serum or plasma urea nitrogen/creatinine mass ratio 17 NRG Serum or plasma creatinine measurement with calculation of estimated glomerular filtration rate > NRG Serum or plasma glucose measurement (mass/volume) 76 mg/dL 70-105 Serum or plasma calcium measurement (mass/volume) 8.4 mg/dL 8.5-10.1 Serum or plasma total bilirubin measurement (mass/volume) 0.6 mg/dL 0.1-1.0 Serum or plasma alkaline phosphatase measurement (enzymatic activity/volume) 70 U/L 40-136 Serum or plasma aspartate aminotransferase measurement (enzymatic activity/ volume) 10 U/L 5-34 Serum or plasma alanine aminotransferase measurement (enzymatic activity/volume ) 10 U/L 0-55 Serum or plasma protein measurement (mass/volume) 5.8 g/dL 6.4-8.2 Serum or plasma albumin measurement (mass/volume) 3.3 g/dL 3.2-4.5 Urine protein/creatinine mass ratio - 05/06/17 16:15 Urine protein measurement (mass/volume) 27 mg/dL 6-12 Urine creatinine measurement (mass/volume) 83 mg/dL 30- 125 Urine protein/creatinine mass ratio 0.33 NRG Complete urinalysis with reflex to culture - 05/06/17 16:15 Urine color determination YELLOW NRG Urine clarity determination SLIGHTLY CLOUDY NRG Urine pH measurement by test strip 8 5-9 Specific gravity of urine by test strip 1.015 1.016- 1.022 Urine protein assay by test strip, semi-quantitative NEGATIVE NEGATIVE Urine glucose detection by automated test strip NEGATIVE NEGATIVE Erythrocytes detection in urine sediment by light microscopy 5+ NEGATIVE Urine ketones detection by automated test strip NEGATIVE NEGATIVE Urine nitrite detection by test strip NEGATIVE NEGATIVE Urine total bilirubin detection by test strip NEGATIVE NEGATIVE Urine urobilinogen measurement by automated test strip (mass/volume) 1 mg/dL NORMAL Urine leukocyte esterase detection by dipstick 1+ NEGATIVE Automated urine sediment erythrocyte count by microscopy (number/high power field) [HPF] NRG Automated urine sediment leukocyte count by microscopy (number/high power field ) [HPF] NRG Bacteria detection in urine sediment by light microscopy TRACE NRG Squamous epithelial cells detection in urine sediment by light microscopy 2-5 NRG Crystals detection in urine sediment by light microscopy NONE NRG Casts detection in urine sediment by light microscopy NONE NRG Mucus detection in urine sediment by light microscopy MODERATE NRG Complete urinalysis with reflex to culture NO NRG Bacterial urine culture - 05/06/17 16:15 Bacterial urine culture NG NRG Comprehensive metabolic panel - 05/06/17 16:25 Serum or plasma sodium measurement (moles/volume) 138 mmol/L 135-145 Serum or plasma potassium measurement (moles/volume) 3.9 mmol/L 3.6-5.0 Serum or plasma chloride measurement (moles/volume) 109 mmol/L 98-107 Carbon dioxide 20 mmol/L 21-32 Serum or plasma anion gap determination (moles/volume) 9 mmol/L 5-14 Serum or plasma urea nitrogen measurement (mass/volume) 7 mg/dL 7-18 Serum or plasma creatinine measurement (mass/volume) 0.56 mg/dL 0.60-1.30 Serum or plasma urea nitrogen/creatinine mass ratio 13 NRG Serum or plasma creatinine measurement with calculation of estimated glomerular filtration rate > NRG Serum or plasma glucose measurement (mass/volume) 77 mg/dL 70-105 Serum or plasma calcium measurement (mass/volume) 9.0 mg/dL 8.5-10.1 Serum or plasma total bilirubin measurement (mass/volume) 0.7 mg/dL 0.1-1.0 Serum or plasma alkaline phosphatase measurement (enzymatic activity/volume) 120 U/L 40-136 Serum or plasma aspartate aminotransferase measurement (enzymatic activity/ volume) 10 U/L 5-34 Serum or plasma alanine aminotransferase measurement (enzymatic activity/volume ) 8 U/L 0-55 Serum or plasma protein measurement (mass/volume) 6.4 g/dL 6.4-8.2 Serum or plasma albumin measurement (mass/volume) 3.4 g/dL 3.2-4.5 Lactate dehydrogenase 1 [enzymatic activity/volume] in serum or plasma - 16:25 Lactate dehydrogenase 1 [enzymatic activity/volume] in serum or plasma 136 U/L 125-220 Complete blood count (CBC) with automated white blood cell (WBC) differential - 05/06/17 16:25 Blood leukocytes automated count (number/volume) 11.6 10*3/uL 4.3-11.0 Blood erythrocytes automated count (number/volume) 3.74 10*6/uL 4.35-5.85 Venous blood hemoglobin measurement (mass/volume) 12.0 g/dL 11.5-16.0 Blood hematocrit (volume fraction) 34 % 35-52 Automated erythrocyte mean corpuscular volume 91 [foz_us] 80-99 Automated erythrocyte mean corpuscular hemoglobin (mass per erythrocyte) 32 pg 25-34 Automated erythrocyte mean corpuscular hemoglobin concentration measurement ( mass/volume) 35 g/dL 32-36 Automated erythrocyte distribution width ratio 13.5 % 10.0-14.5 Automated blood platelet count (count/volume) 241 10*3/uL 130-400 Automated blood platelet mean volume measurement 10.3 [foz_us] 7.4-10.4 Automated blood neutrophils/100 leukocytes 81 % 42-75 Automated blood lymphocytes/100 leukocytes 13 % 12-44 Blood monocytes/100 leukocytes 5 % 0-12 Automated blood eosinophils/100 leukocytes 0 % 0-10 Automated blood basophils/100 leukocytes 0 % 0-10 Blood neutrophils automated count (number/volume) 9.4 10*3 1.8-7.8 Blood lymphocytes automated count (number/volume) 1.5 10*3 1.0-4.0 Blood monocytes automated count (number/volume) 0.6 10*3 0.0-1.0 Automated eosinophil count 0.0 10*3/uL 0.0-0.3 Automated blood basophil count (count/volume) 0.0 10*3/uL 0.0-0.1 Blood type T Indirect antibody screen panel - 05/08/17 14:59 ABO+Rh group BN NRG Transfusion band number [id number] NRG Blood group antibody screen NEGATIVE NRG Methicillin resistant Staphylococcus aureus (MRSA) screening culture - 15:00 Methicillin resistant Staphylococcus aureus (MRSA) screening culture NEG NRG Measurement of weight of kidney stone - 05/08/17 15:51 Measurement of weight of kidney stone 12 NRG Kidney stone composition determination SEE FOOTNOTE NRG Count of number of calculi 1 NRG Size of stone 1 to 4 NRG Encounters ACCT No. Visit Date/Time Discharge Status Pt. Type Provider Facility Loc./Unit Complaint [id number] 05/06/2017 15:05:00 05/09/2017 13:00:00 DIS Outpatient DYLAN CANTRELL MD [facility] L[facility]P SEVERE LEFT HYDRONEPHROSIS [id number] 05/05/2017 12:52:00 05/05/2017 23:59:59 CLS Outpatient MIS CHAUDHARI DO [facility] RAD Z34.93 THIRD TRIMESTER [id number] 04/03/2017 12:50:00 04/03/2017 18:55:00 DIS Outpatient ANA BRANNON DO [facility] WSo KIDNEY STONE [id number] 03/13/2017 13:48:00 03/16/2017 11:27:00 DIS Inpatient MIS CHAUDHARI DO [facility] LDRP KIDNEY STONES [id number] 02/24/2017 10:15:00 02/25/2017 08:00:00 DIS Inpatient DYLAN CANTRELL MD [facility] ABD PAIN,BLEEDING, NEPHROLITHIASIS [id number] 02/05/2017 09:52:00 02/05/2017 23:59:59 CLS Outpatient MIS CHAUDHARI DO [facility] RAD MEASUREMENTS SURVEY [id number] 12/24/2016 15:35:00 12/24/2016 18:29:00 DIS Emergency GIA BRYAN APRN [facility] ER DIZZINESS;15 WEEKS [id number] 02/14/2016 14:15:00 02/14/2016 16:55:00 DIS Emergency GIA BRYAN APRN [facility] ER LOW ABD PAIN [id number] 08/21/2015 06:00:00 08/21/2015 23:59:59 CLS Outpatient MIS CHAUDHARI DO [facility] SDC LEFT OVARIAN CYST [id number] 08/14/2015 08:37:00 08/14/2015 09:44:00 DIS Outpatient MIS CHAUDHARI DO [facility] PREOP LEFT OVARIAN CYCT [id number] 07/11/2015 10:35:00 07/11/2015 23:59:59 CLS Outpatient SÁNCHEZ BARAHONA [facility] RAD PELVIC PAIN,OVARIAN CYST [id number] 07/03/2015 11:57:00 07/03/2015 16:33:00 DIS Emergency TORRI CAR [facility] ER ABD PAIN [id number] 07/02/2015 11:15:00 07/02/2015 15:09:00 DIS Emergency ANGELA BOYLE, LEO Martinez [facility] ER LOWER ABD PAIN
[2017-05-30] MEDS: KETOROLAC 30 MG/ML VIAL IV SCH ×3 (10:39→22:59)
[2017-05-30] MEDS ORDERED: D5 LR IV SOLUTION 1,000 ML IV SCH (11:18)
[2017-05-30 11:28] LABS: BASOPHILS # (AUTO) 0.1 10^3/uL (0.0-0.1); BASOPHILS % (AUTO) 1 % (0-10); EOSINOPHILS # (AUTO) 0.1 10^3/uL (0.0-0.3); EOSINOPHILS % (AUTO) 1 % (0-10); HEMATOCRIT 37 % (35-52); HEMOGLOBIN 12.8 G/DL (11.5-16.0); LYMPHOCYTES # (AUTO) 3.2 X 10^3 (1.0-4.0); LYMPHOCYTES % (AUTO) 25 % (12-44); MEAN CORPUSCULAR HEMOGLOBIN 31 PG (25-34); MEAN CORPUSCULAR HGB CONC 35 G/DL (32-36); MEAN CORPUSCULAR VOLUME 88 FL (80-99); MEAN PLATELET VOLUME 11.2 FL (7.4-10.4); MONOCYTES % (AUTO) 8 % (0-12); NEUTROPHILS # (AUTO) 8.5 X 10^3 (1.8-7.8); NEUTROPHILS % (AUTO) 66 % (42-75); PLATELET COUNT 294 10^3/uL (130-400); RED BLOOD COUNT 4.13 10^6/uL (4.35-5.85); RED CELL DISTRIBUTION WIDTH 13.7 % (10.0-14.5); WHITE BLOOD COUNT 12.9 10^3/uL (4.3-11.0)
[2017-05-30] MEDS ORDERED: MINERAL OIL CONCENTRATE 99.9% 15 ML UDC TOP PRN (11:30)
[2017-05-30] MEDS ORDERED: CATHETER FLUSH 10 ML SYR IV SCH (14:00)
--- NOTE | 2017-05-30 16:26 | OPERATIVE REPORT ---
DATE OF SERVICE: 05/30/2017 DELIVERY NOTE The patient delivered precipitously at 37 and 1/7th weeks' gestation by term spontaneous vaginal delivery a viable female infant with Apgars of 8 and 9 at 1 and 5 minutes respectively, weight of 7 pounds and 1 ounce, time of 0914 and a cord blood pH of 7.25. Membranes ruptured spontaneously as they were bulging through the introitus with the presenting part at the +3 to +4 station. There was very thick heavy meconium. The patient pushed several times, was unable to expel the baby because of a very narrow introitus. She requested episiotomy, which was performed and baby delivered with the next 2 pushes. The was briefly bulb suctioned and delivery completed. The umbilical cord doubly clamped and cut by the father and the baby taken to the warmer for resuscitation secondary to his thick meconium. The baby did have spontaneous cry, moved all extremities, and was relatively quickly pink. Had excellent tone and reflexes. The placenta delivered spontaneously Schultze and it was very heavily meconium stained as were the membranes. The placenta was sent to pathology for permanent section. Cord bloods had been obtained prior to delivery of the placenta. The cervix, vagina, rectum and perineum were examined and found intact, except for the midline episiotomy, which was repaired with a single suture of 3-0 Vicryl in the usual manner without difficulty to good reapproximation and good hemostasis. Estimated blood loss for the delivery was around 200 mL. Sponge and needle counts were correct on completion of the delivery and the repair. The patient tolerated the delivery and the repair well and remained in the LDR for recovery. Dr. Lin had been summoned on notice of the thick meconium. She had arrived shortly after delivery and the baby was left in her care. Job ID: [id number] DocumentID: [id number] Dictated Date: 05/30/2017 09:50:28 Biostatistics Director Date: 05/30/2017 12:20:49 Dictated By: DYLAN CANTRELL MD
[2017-05-30] MEDS: DOCUSATE SODIUM 100 MG (COLACE) CAP PO SCH (21:18)
[2017-05-30] MEDS: BENZOCAINE/MENTHOL (DERMOPLAST) 56 ML CAN TP PRN (21:18)
[2017-05-31 01:00] VITALS: BP 101/62
[2017-05-31] MEDS: KETOROLAC 30 MG/ML VIAL IV SCH (05:26)
[2017-05-31 05:30] VITALS: BP 107/69
[2017-05-31] MEDS ORDERED: INFLUENZA TRIvalent 2017-2018 0.5 ML/45 MCG SYR IM ONE (07:45)
--- NOTE | 2017-05-31 09:59 | Progress Note-Standard ---
Standard Progress Note Progress Notes/Assess & Plan Date Seen by Provider: May 31, 2017 Time Seen by Provider: 09:58 Progress/Assessment & Plan This patient is without complaint. She is ambulating, voiding, tolerating by mouth, has good pain control. Patient denies chest pain, denies shortness breath, denies nausea vomiting, and denies headache. Vital Signs Date Time Temp Pulse Resp B/P (MAP) Pulse Ox O2 Delivery O2 Flow Rate FiO2 05/31/17 05:30 96.5 83 16 107/69 (82) Room Air 05/31/17 01:00 97.0 89 16 101/62 (75) Room Air 05/30/17 21:00 97.6 88 16 96/64 (75) 97 Room Air 05/30/17 17:15 98.2 92 18 109/70 (83) 98 Room Air 05/30/17 12:04 93 18 125/87 (100) Room Air 05/30/17 11:49 85 18 121/82 (95) Room Air 05/30/17 11:34 88 18 122/78 (93) Room Air 05/30/17 11:20 103 18 121/80 (94) Room Air 05/30/17 11:04 91 18 121/79 (93) Room Air 05/30/17 10:49 87 18 124/81 (95) Room Air 05/30/17 10:34 115 18 128/78 (95) Room Air 05/30/17 10:19 92 18 135/84 (101) Room Air 05/30/17 10:04 86 18 122/81 (95) Room Air I & O 05/31/17 07:00 Intake Total 600 ml Balance 600 ml Vital signs are stable. Patient is afebrile. Fundus is firm below the umbilicus and nontender. Extremities show clubbing cyanosis. There is no Homans sign. There is minimal pretibial pitting edema. Assessment and plan day number 1 status post precipitous term spontaneous vaginal delivery doing well. Plan is for routine convalescence care today and discharge home tomorrow Final Diagnosis Term spontaneous/precipitous delivery DYLAN CANTRELL MD May 31, 2017 9:59 am
[2017-05-31 10:55] VITALS: BP 103/67
[2017-05-31] MEDS: IBUPROFEN 800 MG (MOTRIN) TAB PO SCH ×3 (10:58→23:45)
[2017-05-31] MEDS: DOCUSATE SODIUM 100 MG (COLACE) CAP PO SCH ×2 (10:58→21:33)
[2017-05-31 16:15] VITALS: BP 103/69
[2017-05-31 21:30] VITALS: BP 107/69
[2017-05-31 23:45] VITALS: BP 121/77
[2017-06-01 05:43] VITALS: BP 108/66
[2017-06-01] MEDS: IBUPROFEN 800 MG (MOTRIN) TAB PO SCH ×2 (05:44→14:01)
--- NOTE | 2017-06-01 07:26 | Progress Note-Standard ---
Standard Progress Note Progress Notes/Assess & Plan Date Seen by Provider: Jun 01, 2017 Time Seen by Provider: 07:25 Progress/Assessment & Plan This patient is without complaint. She is ambulating, voiding, tolerating by mouth, has good pain control. Patient denies chest pain, denies shortness breath, denies nausea vomiting, and denies headache. Vital Signs Date Time Temp Pulse Resp B/P (MAP) Pulse Ox O2 Delivery O2 Flow Rate FiO2 05/31/17 05:30 96.5 83 16 107/69 (82) Room Air 05/31/17 01:00 97.0 89 16 101/62 (75) Room Air 05/30/17 21:00 97.6 88 16 96/64 (75) 97 Room Air 05/30/17 17:15 98.2 92 18 109/70 (83) 98 Room Air 05/30/17 12:04 93 18 125/87 (100) Room Air 05/30/17 11:49 85 18 121/82 (95) Room Air 05/30/17 11:34 88 18 122/78 (93) Room Air 05/30/17 11:20 103 18 121/80 (94) Room Air 05/30/17 11:04 91 18 121/79 (93) Room Air 05/30/17 10:49 87 18 124/81 (95) Room Air 05/30/17 10:34 115 18 128/78 (95) Room Air 05/30/17 10:19 92 18 135/84 (101) Room Air 05/30/17 10:04 86 18 122/81 (95) Room Air I & O 05/31/17 07:00 Intake Total 600 ml Balance 600 ml Vital signs are stable. Patient is afebrile. Fundus is firm below the umbilicus and nontender. Extremities show clubbing cyanosis. There is no Homans sign. There is minimal pretibial pitting edema. Assessment and plan day number 1 status post precipitous term spontaneous vaginal delivery doing well. Plan is for routine convalescence care today and discharge home tomorrow June 01, 2017 Patient without complaint. She is ambulating, voiding, tolerating by mouth, has good pain control and is requesting discharge home. Vital Signs Date Time Temp Pulse Resp B/P (MAP) Pulse Ox O2 Delivery O2 Flow Rate FiO2 06/01/17 05:43 97.7 81 16 108/66 (80) Room Air 05/31/17 23:45 87 16 121/77 (92) Room Air 05/31/17 21:30 97.1 110 16 107/69 (82) Room Air 05/31/17 16:15 98.1 103 18 103/69 (80) 98 Room Air 05/31/17 10:55 97.9 77 18 103/67 (79) 99 Room Air Vital signs are stable. Patient is afebrile. Fundus is firm below the umbilicus and nontender. Extremities show clubbing cyanosis. There is no Homans sign. Assessment and plan post day number 2 status post term spontaneous vaginal delivery doing well. Plan is for discharge home with follow-up in clinic Final Diagnosis Term spontaneous precipitous vaginal delivery DYLAN CANTRELL MD Jun 01, 2017 7:26 am
[2017-06-01 09:37] VITALS: BP 106/74
[2017-06-01] MEDS: DOCUSATE SODIUM 100 MG (COLACE) CAP PO SCH (09:38)
[2017-06-01] MEDS: BENZOCAINE/MENTHOL (DERMOPLAST) 56 ML CAN TP PRN (09:38)
[2017-06-01 14:01] VITALS: BP 106/70
== END 2017-06-01 14:50 | disposition home or self-care (01) | DRG 775 ==
LOC: LDRP 08:40 → WSo 08:40 → LDRP 09:53 → WSo 09:53 → LDRP 12:30
PROVIDERS: ADMIT Obstetrics & Gynecology; ATTEND Obstetrics & Gynecology
PROC: 0W8NXZZ Division of Female Perineum, External Approach (ICD-10-PCS; principal; 2017-05-30)
PROC: 10E0XZZ Delivery of Products of Conception, External Approach (ICD-10-PCS; 2017-05-30)
DX: O62.3 Precipitate labor (principal); Z3A.37 37 weeks gestation of pregnancy; Z87.442 Personal history of urinary calculi; Z37.0 Single live birth
CPT/HCPCS: 36415; 85025; 86850; 86900; 86901; 99212

== ENCOUNTER → 2017-08-26 | Outpatient (CLI) | payer MEDICAID ==
[~2017-08-26] MED LIST changes: +DOCU100C37 PO; +HYDR-3870 PO; +IBUP-1780 PO; +NITR-65 PO
== END ==
LOC: PREOP 05:36
PROVIDERS: ATTEND Urology
DX: Z01.818 Encounter for other preprocedural examination (principal)

== ENCOUNTER 2017-09-01 06:33 | Day surgery (SDC) | payer MEDICAID ==
[~2017-09-01] VITALS: Ht 175.3 cm; Wt 63.5 kg
[~2017-09-01 06:33] MED LIST changes: -HYDR-3870 PO; -NITR-65 PO
[2017-09-01] MEDS ORDERED: DEXAMETHASONE 10 MG/ML (DECADRON) 1 ML VIAL ONE (06:59)
[2017-09-01] MEDS ORDERED: ONDANSETRON 4 MG/2 ML (SDV) Z0FRAN ONE ×2 (06:59→07:09)
[2017-09-01] MEDS ORDERED: KETOROLAC 30 MG/ML VIAL ONE ×2 (06:59→07:53)
[2017-09-01] MEDS ORDERED: MIDAZOLAM 2 MG/2 ML (VERSED) VIAL ONE ×2 (06:59→07:02)
[2017-09-01] MEDS ORDERED: proPOfol 200 MG/20 ML (DIPRIVAN) VIAL IV ONE ×3 (06:59→07:59)
[2017-09-01] MEDS ORDERED: SEVOFLURANE (ULTANE) 15 ML INHAL SOLN ONE ×2 (06:59→07:28)
[2017-09-01] MEDS ORDERED: LIDOCAINE PF 2% 5 ML (XYLOCAINE) VIAL ONE (06:59)
[2017-09-01] MEDS ORDERED: fentaNYL INJECTION 100 MCG/2 ML AMP ONE (06:59)
[2017-09-01] MEDS ORDERED: FUROSEMIDE 40 MG/4 ML INJ (LASIX) ONE ×2 (06:59→07:53)
[2017-09-01 07:00] VITALS: BP 115/73
[2017-09-01] MEDS ORDERED: cefTRIAXone 1 GM (ROCEPHIN) VIAL ONE (07:00)
[2017-09-01] MEDS ORDERED: NS (IVPB) 50 ML ONE (07:00)
[2017-09-01] MEDS ORDERED: FAMOTIDINE 20MG/2ML IV (PEPCID) ONE (07:02)
--- NOTE | 2017-09-01 07:10 | Progress Note-Pre Operative ---
Pre-Operative Progress Note H&P Reviewed The H&P was reviewed, patient examined and no changes noted. Date Seen by Provider: September 01, 2017 Time Seen by Provider: 07:09 Date H&P Reviewed: September 01, 2017 Time H&P Reviewed: 07:09 Pre-Operative Diagnosis: RT RENAL STONE SELVIN SANTIAGO MD September 01, 2017 7:10 am
[2017-09-01] MEDS ORDERED: ONDANSETRON 4 MG/2 ML (SDV) Z0FRAN IV ONE (07:15)
[2017-09-01] MEDS ORDERED: MIDAZOLAM 2 MG/2 ML (VERSED) VIAL IV ONE (07:15)
[2017-09-01] MEDS ORDERED: FAMOTIDINE 20MG/2ML IV (PEPCID) IV ONE (07:15)
--- NOTE | 2017-09-01 07:34 | Discharge Inst-Urology ---
Discharge Inst-Urology Discharge Medications New, Converted, or Re-newed RX: RX on Chart Patient Instructions/Follow Up Plan Please make appointment to been seen in office in 4 weeks. KUB prior to it KUB on way home Post ESWL instructions Increase oral fluids for 48 hours and then as needed. Diet and Activity as tolerated. If questions or concerns contact your physician Or seek help at emergency department. SELVIN SANTIAGO MD September 01, 2017 7:34 am
--- NOTE | 2017-09-01 07:35 | Progress Note-Post Operative ---
Post-Operative Progess Note Surgeon (s)/Monogram Technician (s) Surgeon SELVIN SANTIAGO MD Monogram Technician: N/A Pre-Operative Diagnosis RT RENAL STONE (LOWER POLE) Post-Operative Diagnosis SAME Procedure & Operative Findings Date of Procedure 09/01/17 Procedure Performed/Findings RT ESWL Anesthesia Type GENERAL Estimated Blood Loss Estimated blood loss (mL): N/A Specimens/Packing Specimens Removed N/A Packing: N/A SELVIN SANTIAGO MD September 01, 2017 7:35 am
--- NOTE | 2017-09-01 07:40 | Diagnostic Imaging Report ---
INDICATION: Status post lithotripsy. COMPARISON: 08/03/2017. FINDINGS: The 4 mm mineralized focus in the region of the right renal fossa is not as well seen on today's examination, but may still be present and have overlying bowel gas associated. No definitive new renal or ureteral stones. Nonobstructive bowel gas pattern. IMPRESSION: The previously noted right renal stone is not well seen by radiography. Dictated by: Dictated on workstation # [id number]
[2017-09-01] MEDS ORDERED: fentaNYL INJECTION 100 MCG/2 ML AMP IVP PRN (08:00)
[2017-09-01] MEDS ORDERED: ONDANSETRON 4 MG/2 ML (SDV) Z0FRAN IVP PRN (08:00)
[2017-09-01] MEDS ORDERED: cefTRIAXone 1 GM/NS 50 ML IVPB IV ONE ×2 (08:00)
[2017-09-01] MEDS ORDERED: LACTATED RINGERS 1,000 ML IV SCH (08:15)
[2017-09-01 08:35] VITALS: BP 121/72
[2017-09-01] MEDS ORDERED: HYDR-3870 PO (08:54)
[2017-09-01] MEDS ORDERED: NITR-65 PO (08:54)
[2017-09-01] MEDS ORDERED: TAMS0.4C98 PO (08:54)
[2017-09-01 09:00] VITALS: BP 121/72
[2017-09-01 09:05] VITALS: BP 112/86
--- NOTE | 2017-09-01 09:09 | Anesthesia-General Post-Op ---
General Patient Condition Mental Status/LOC: Same as Preop Cardiovascular: Satisfactory Nausea/Vomiting: Absent Respiratory: Satisfactory Pain: Controlled Complications: Absent Post Op Complications Complications None Follow Up Care/Instructions Patient Instructions None needed. Anesthesia/Patient Condition Patient Condition Patient is doing well, no complaints, stable vital signs, no apparent adverse anesthesia problems. No complications reported per nursing. [place] [facility] [place] Yes LG ALCARAZ CRNA September 01, 2017 09:09
--- NOTE | 2017-09-01 13:40 | OPERATIVE REPORT ---
DATE OF SERVICE: 09/01/2017 PREOPERATIVE DIAGNOSIS: Right renal stone. POSTOPERATIVE DIAGNOSIS: Right renal stone. OPERATION PERFORMED: Right ESWL. SURGEON: Ki Santiago MD ANESTHESIA: General. COMPLICATIONS: None. DESCRIPTION OF PROCEDURE: Under satisfactory general anesthesia the patient supine on the ESWL table, the right renal stone was localized. Shocks were delivered at a kV of 5. A total of 1200 shocks completely fragmented the stone that was not visualized anymore. The patient received 40 mg of Lasix and 30 mg of Toradol IV at the end of the procedure. She tolerated the procedure and anesthesia well and was sent to recovery room in stable condition. Job ID: [id number] DocumentID: [id number] Dictated Date: 09/01/2017 07:39:39 Design Specialist Date: 09/01/2017 13:39:40 Dictated By: KI SANTIAGO MD
== END 2017-09-01 09:18 | disposition home or self-care (01) ==
LOC: SDC 06:33
PROVIDERS: ATTEND Urology
DX: N20.0 Calculus of kidney (principal)
CPT/HCPCS: 74018; 84703; 87081

== ENCOUNTER 2018-03-16 10:36 | Emergency (ER) | payer MEDICAID ==
[~2018-03-16] VITALS: Ht 177.8 cm; Wt 63.5 kg
[~2018-03-16 10:36] MED LIST changes: +HYDR-3870 PO; +NITR-65 PO
--- NOTE | 2018-03-16 12:24 | ED General ---
General Chief Complaint: Cough/Cold/Flu Symptoms Stated Complaint: COUGH/CONGESTION FEVER Nursing Triage Note: PT PRESENTS TO ED WITH COMPLAINTS OF COUGH/COLD/FLU S/S WITH FEVER SINCE THURSDAY Nursing Sepsis Screen: No Definite Risk Source of Information: Patient Exam Limitations: No Limitations History of Present Illness Date Seen by Provider: Mar 16, 2018 Time Seen by Provider: 11:24 Initial Comments Patient presents to emergency room with 2 days of cough, sore throat, chest congestion, and fever up to 102.3. She has been ill for about 48 hours. She has nausea without vomiting. She denies tobacco use. She is here with her who has similar symptoms. She is afebrile at present. She denies . Allergies and Home Medications Allergies Coded Allergies: No Known Drug Allergies (Unverified , 08/14/15) Home Medications Docusate Sodium 100 Mg Capsule, 100 MG PO BID Prescribed by: DYLAN DARLING on 05/30/17 0944 Hydrocodone/Acetaminophen 1 Each Tablet, 1-2 EACH PO Q4H PRN for PAIN Prescribed by: TRAM ELIZABETH on 09/01/17 0854 Ibuprofen 800 Mg Tablet, 800 MG PO Q6H Prescribed by: DYLAN DARLING on 05/30/17 0944 Nitrofurantoin Monohyd/M-Cryst 100 Mg Capsule, 1 TAB PO BID Prescribed by: TRAM ELIZABETH on 09/01/17 0854 Oxycodone HCl/Acetaminophen 1 Each Tablet, 1-2 TAB PO Q4HR PRN for PAIN- MODERATE TO SEVERE Prescribed by: DYLAN DARLING on 05/30/17 0944 Vit W-Ca,Fe,FA(<1 mg) 1 Each Tablet, 1 EACH PO DAILY, (Reported) Tamsulosin HCl 0.4 Mg Cap, 0.4 MG PO DAILY Prescribed by: TRAM ELIZABETH on 09/01/17 0854 Patient Home Medication List Home Medication List Reviewed: Yes Review of Systems Review of Systems Constitutional: see HPI EENTM: see HPI Respiratory: see HPI Cardiovascular: no symptoms reported Gastrointestinal: see HPI Genitourinary: no symptoms reported : No Musculoskeletal: no symptoms reported Skin: no symptoms reported Psychiatric/Neurological: No Symptoms Reported Hematologic/Lymphatic: No Symptoms Reported Immunological/Allergic: no symptoms reported Past Pesbznx-Pckkba-Dvzkbw Hx Past Med/Social Hx: Reviewed and Corrections made Patient Social History Alcohol Use: Denies Use Recreational Drug Use: No Smoking Status: Former Smoker Type Used: Cigarettes Former Smoker, Quit: Jan 11, 2017 Recent Foreign Travel: No Contact w/Someone Who Travel: No Recent Infectious Disease Expo: No Recent Hopitalizations: No Physical Abuse: No Sexual Abuse: No Mistreated: No Fear: No Immunizations Up To Date Tetanus Booster (TDap): Unknown PED Vaccines UTD: Yes Date of Influenza Vaccine: Jan 11, 2015 Seasonal Allergies Seasonal Allergies: No Past Medical History Surgeries: Yes (L WRIST, RIGHT EAR RECONTRUCTION, LITHROTRIPSY ) Abdominal, Ear Surgery, Orthopedic Respiratory: No Cardiac: Yes (SMALL HEART MURMUR) Neurological: No : No Reproductive Disorders: Yes (left ovarian cyst) Female Reproductive Disorders: Menstrual Problems, Ovarian Cyst Sexually Transmitted Disease: No HIV/AIDS: No Genitourinary: Yes Kidney Stones, UTI-Chronic Gastrointestinal: Yes (REFLUX WHEN EATS SPICY FOOD ) Gastroesophageal Reflux Musculoskeletal: Yes Chronic Back Pain Endocrine: No HEENT: No Loss of Vision: Denies Hearing Impairment: Hard of Hearing Cancer: No Psychosocial: Yes Depression Integumentary: Yes Eczema Blood Disorders: No Adverse Reaction/Blood Tranf: No Family Medical History Patient reports no known family medical history. No Pertinent Family Hx Physical Exam Vital Signs Vital Signs - First Documented 03/16/18 11:33 Temp 97.0 Pulse 104 Resp 20 B/P (MAP) 119/57 (77) Pulse Ox 95 O2 Delivery Room Air Capillary Refill : Less Than 3 Seconds Height, Weight, BMI Height: 5'10.00" Weight: 140lbs. 0.0oz. 63.266692bz; 20.7 BMI Method:Stated General Appearance: No Apparent Distress, WD/WN HEENT: PERRL/EOMI, Normal ENT Inspection, Pharyngeal Erythema (without exudate) , Other (serous effusion around the rim of the TM on the left. Right TM partially obscured by cerumen) Neck: Normal Inspection Respiratory: Lungs Clear, Normal Breath Sounds, No Accessory Muscle Use, No Respiratory Distress Cardiovascular: Regular Rate, Rhythm, No Edema, No Murmur Extremity: Normal Inspection, No Pedal Edema Neurologic/Psychiatric: Alert, Oriented x3, No Motor/Sensory Deficits, Normal Mood/Affect, head operator II-XII Norm as Tested Skin: Normal Color, Warm/Dry Progress/Results/Core Measures Suspected Sepsis Recent Fever Within 48 Hours: No Infection Criteria Present: None New/Unexplained Altered Menta: No Sepsis Screen: No Definite Risk SIRS Temperature:97.0 Pulse: 104 Respiratory Rate: 20 Blood Pressure 119 /57 Mean: 77 Results/Orders Micro Results Microbiology 03/16/18 Influenza Types A,B Antigen (JANIE) - Final, Complete Vital Signs/I&O 03/16/18 03/16/18 03/16/18 11:33 11:33 12:33 Temp 97.0 Pulse 104 100 Resp 20 18 B/P (MAP) 119/57 (77) 126/70 (88) Pulse Ox 95 98 O2 Delivery Room Air Capillary Refill : Less Than 3 Seconds Blood Pressure Mean: 77 Progress Note : Progress Note Influenza screen was negative. Symptomatic care for suspected viral URI recommended. Departure Impression Primary Impression: Upper respiratory infection Qualified Codes: J06.9 - Acute upper respiratory infection, unspecified Disposition: HOME, SELF-CARE Condition: Stable Departure-Patient Inst. Decision time for Depature: 11:35 Referrals: NO,LOCAL PHYSICIAN (PCP/Family) Primary Care Physician Patient Instructions: Viral Upper Respiratory Infection, Adult (DC) Add. Discharge Instructions: You may take Tylenol (acetaminophen) up to 1000 mg every 6 hours as needed and/ or ibuprofen up to 600 mg every 6 hours as needed for pain or fever. Drink plenty of clear liquids. Return to care if you have worsening symptoms. You may use [id number] cough and cold medications. Be careful to check active ingredients so as to not double up on any particular medication. Follow packaging instructions. All discharge instructions reviewed with patient and/or family. Voiced understanding. LEO MILLER MD Mar 16, 2018 12:24
[2018-03-16 12:33] VITALS: BP 126/70
== END 2018-03-16 12:33 | disposition home or self-care (01) ==
LOC: EDUNIT# 10:36 → ER 10:38
DX: J06.9 Acute upper respiratory infection, unspecified (principal); K21.9 Gastro-esophageal reflux disease without esophagitis; F32.9 Major depressive disorder, single episode, unspecified; Z87.891 Personal history of nicotine dependence; Z98.890 Other specified postprocedural states; Z87.442 Personal history of urinary calculi; Z87.448 Personal history of other diseases of urinary system; Z87.440 Personal history of urinary (tract) infections
CPT/HCPCS: 87804

== ENCOUNTER 2018-07-21 13:59 | Emergency (ER) | payer MEDICAID ==
[~2018-07-21] VITALS: Ht 175.3 cm; Wt 68.0 kg
[2018-07-21] MEDS ORDERED: KETOROLAC 30 MG/ML VIAL IVP ONE (14:15)
--- NOTE | 2018-07-21 14:15 | ED General ---
General Stated Complaint: ABD/VAG PAIN Source of Information: Patient Exam Limitations: No Limitations History of Present Illness Date Seen by Provider: Jul 21, 2018 Time Seen by Provider: 14:11 Initial Comments To ER with intermittent nausea vomiting and diarrhea jet this morning upon awakening. She has some suprapubic abdominal pain constant with sensation of the need to urinate but inability to do so. she also had a small amount of vaginal bleeding. She is on the Depo-provera injection with most recent injection in June.she is sexually active. She is not nauseated at this time, rates her pain at 6 out of 10 Timing/Duration: 4-6 Hours Severity: Moderate Associated Systoms: Nausea/Vomiting Allergies and Home Medications Allergies Coded Allergies: morphine (Verified Allergy, Unknown, 07/21/18) Home Medications Cefuroxime Axetil 250 Mg Tablet, 250 MG PO BID Prescribed by: GIA BRYAN on 07/21/18 1602 Docusate Sodium 100 Mg Capsule, 100 MG PO BID Prescribed by: DYLAN DARLING on 05/30/17 0944 Hydrocodone/Acetaminophen 1 Each Tablet, 1-2 EACH PO Q4H PRN for PAIN Prescribed by: TRAM ELIZABETH on 09/01/17 0854 Ibuprofen 800 Mg Tablet, 800 MG PO Q6H Prescribed by: DYLAN DARLING on 05/30/17 0944 Nitrofurantoin Monohyd/M-Cryst 100 Mg Capsule, 1 TAB PO BID Prescribed by: TRAM ELIZABETH on 09/01/17 0854 Oxycodone HCl/Acetaminophen 1 Each Tablet, 1-2 TAB PO Q4HR PRN for PAIN- MODERATE TO SEVERE Prescribed by: DYLAN DARLING on 05/30/17 0944 Vit W-Ca,Fe,FA(<1 mg) 1 Each Tablet, 1 EACH PO DAILY, (Reported) Tamsulosin HCl 0.4 Mg Cap, 0.4 MG PO DAILY Prescribed by: TRAM ELIZABETH on 09/01/17 0854 Patient Home Medication List Home Medication List Reviewed: Yes Review of Systems Review of Systems Constitutional: see HPI; No chills, No fever EENTM: see HPI Respiratory: no symptoms reported Gastrointestinal: abdominal pain, diarrhea, nausea, vomiting Genitourinary: see HPI, dysuria Musculoskeletal: no symptoms reported Skin: no symptoms reported Psychiatric/Neurological: No Symptoms Reported Hematologic/Lymphatic: No Symptoms Reported Immunological/Allergic: no symptoms reported Past Vkdtsav-Usbupz-Yxdnij Hx Patient Social History Type Used: Cigarettes Former Smoker, Quit: Jan 11, 2017 Recent Foreign Travel: No Contact w/Someone Who Travel: No Recent Hopitalizations: No Immunizations Up To Date Tetanus Booster (TDap): Unknown PED Vaccines UTD: Yes Date of Influenza Vaccine: Jan 11, 2015 Seasonal Allergies Seasonal Allergies: No Past Medical History Surgeries: Yes (L WRIST, RIGHT EAR RECONTRUCTION, LITHROTRIPSY ) Abdominal, Ear Surgery, Orthopedic Respiratory: No Cardiac: Yes (SMALL HEART MURMUR) Neurological: No Reproductive Disorders: Yes (left ovarian cyst) Female Reproductive Disorders: Menstrual Problems, Ovarian Cyst Sexually Transmitted Disease: No HIV/AIDS: No Genitourinary: Yes Kidney Stones, UTI-Chronic Gastrointestinal: Yes (REFLUX WHEN EATS SPICY FOOD ) Gastroesophageal Reflux Musculoskeletal: Yes Chronic Back Pain Endocrine: No HEENT: No Loss of Vision: Denies Hearing Impairment: Hard of Hearing Cancer: No Psychosocial: Yes Depression Integumentary: Yes Eczema Blood Disorders: No Adverse Reaction/Blood Tranf: No Family Medical History Patient reports no known family medical history. No Pertinent Family Hx Physical Exam Vital Signs Vital Signs - First Documented 07/21/18 14:19 Temp 98.0 Pulse 76 Resp 20 B/P (MAP) 123/79 (94) Pulse Ox 99 Capillary Refill : Height, Weight, BMI Height: 5'10.00" Weight: 140lbs. 0.0oz. 63.655518ow; 20.7 BMI Method:Stated General Appearance: No Apparent Distress, WD/WN Eyes: Bilateral Eye Normal Inspection, Bilateral Eye PERRL, Bilateral Eye EOMI HEENT: PERRL/EOMI Neck: Full Range of Motion, Normal Inspection Respiratory: No Accessory Muscle Use, No Respiratory Distress Cardiovascular: Regular Rate, Rhythm, Normal Peripheral Pulses Gastrointestinal: Normal Bowel Sounds, Soft, Tenderness (suprapubic) Genital/Rectal: Other (pelvic exam done with Antonette at the bedside. there is cervical motion tenderness. minor amount of discharge at the cervix.) Extremity: Normal Capillary Refill, Normal Inspection Neurologic/Psychiatric: Alert, Oriented x3 Skin: Normal Color, Warm/Dry Progress/Results/Core Measures Suspected Sepsis SIRS Temperature: Pulse: Respiratory Rate: Laboratory Tests 07/21/18 14:16: White Blood Count 12.3H Blood Pressure / Mean: Laboratory Tests 07/21/18 14:16: Creatinine 0.75, Platelet Count 300 Results/Orders Lab Results Laboratory Tests Test 07/21/18 14:16 07/21/18 15:35 Range/Units White Blood Count 12.3 H 4.3-11.0 10^3/uL Red Blood Count 4.56 4.35-5.85 10^6/uL Hemoglobin 13.5 11.5-16.0 G/DL Hematocrit 39 35-52 % Mean Corpuscular Volume 86 80-99 FL Mean Corpuscular Hemoglobin 30 25-34 PG Mean Corpuscular Hemoglobin Concent 34 32-36 G/DL Red Cell Distribution Width 13.2 10.0-14.5 % Platelet Count 300 130-400 10^3/uL Mean Platelet Volume 9.9 7.4-10.4 FL Neutrophils (%) (Auto) 69 42-75 % Lymphocytes (%) (Auto) 23 12-44 % Monocytes (%) (Auto) 7 0-12 % Eosinophils (%) (Auto) 1 0-10 % Basophils (%) (Auto) 0 0-10 % Neutrophils # (Auto) 8.6 H 1.8-7.8 X 10^3 Lymphocytes # (Auto) 2.8 1.0-4.0 X 10^3 Monocytes # (Auto) 0.8 0.0-1.0 X 10^3 Eosinophils # (Auto) 0.1 0.0-0.3 10^3/uL Basophils # (Auto) 0.0 0.0-0.1 10^3/uL Sodium Level 140 135-145 MMOL/L Potassium Level 3.9 3.6-5.0 MMOL/L Chloride Level 110 H 98-107 MMOL/L Carbon Dioxide Level 24 21-32 MMOL/L Anion Gap 6 5-14 MMOL/L Blood Urea Nitrogen 19 H 7-18 MG/DL Creatinine 0.75 0.60-1.30 MG/DL Estimat Glomerular Filtration Rate > 60 BUN/Creatinine Ratio 25 Glucose Level 89 70-105 MG/DL Calcium Level 9.8 8.5-10.1 MG/DL Serum Test, Qualitative NEGATIVE NEGATIVE Urine Color YELLOW Urine Clarity SLIGHTLY CLOUDY Urine pH 6.5 5-9 Urine Specific Crouse 1.015 L 1.016-1.022 Urine Protein 2+ H NEGATIVE Urine Glucose (UA) NEGATIVE NEGATIVE Urine Ketones NEGATIVE NEGATIVE Urine Nitrite POSITIVE H NEGATIVE Urine Bilirubin NEGATIVE NEGATIVE Urine Urobilinogen NORMAL NORMAL MG/DL Urine Leukocyte Esterase 3+ H NEGATIVE Urine RBC (Auto) 5+ H NEGATIVE Urine RBC 50-100 H /HPF Urine WBC TNTC H /HPF Urine Squamous Epithelial Cells 2-5 /HPF Urine Crystals NONE /LPF Urine Bacteria MODERATE H /HPF Urine Casts NONE /LPF Urine Mucus SMALL H /LPF Urine Culture Indicated YES Micro Results Microbiology 07/21/18 Genital Culture, Resulted Pending 07/21/18 Wet Prep - Final, Resulted My Orders Orders - GIA BRYAN APRN Cbc With Automated Diff (07/21/18 14:05) Basic Metabolic Panel (07/21/18 14:05) Hcg,Qualitative Serum (07/21/18 14:05) Iv Heplock-Insert (Order) (07/21/18 14:05) Ua Culture If Indicated (07/21/18 14:05) Ct Abd/Pelvis Wo(Kidney Stone) (07/21/18 14:09) Ketorolac Injection (Toradol Injection) (07/21/18 14:15) Wet Prep (07/21/18 14:09) Neisseria Gonorrhea Swab (07/21/18 14:09) Genital Culture (07/21/18 14:09) Chlamydia Trachomatis Swab (07/21/18 14:09) Ceftriaxone For Iv Use (Rocephin For I (07/21/18 14:45) Azithromycin Tablet (Zithromax Tablet) (07/21/18 14:45) Urine Culture (07/21/18 15:35) Medications Given in ED Current Medications Medications Dose Ordered Sig/Ayad Route Start Time Stop Time Status Last Admin Dose Admin Ceftriaxone Sodium 1000 mg/ Sterile Water 10 ml @ 200 mls/hr ONCE ONCE IV 07/21/18 14:45 07/21/18 14:47 DC 07/21/18 14:40 200 MLS/HR Ketorolac Tromethamine 15 mg ONCE ONCE IVP 07/21/18 14:15 07/21/18 14:16 DC 07/21/18 14:37 15 MG Vital Signs/I&O 07/21/18 07/21/18 14:19 16:20 Temp 98.0 Pulse 76 87 Resp 20 16 B/P (MAP) 123/79 (94) 123/68 (86) Pulse Ox 99 98 Capillary Refill : Departure Impression Primary Impression: UTI (urinary tract infection) Disposition: HOME, SELF-CARE Condition: Stable Departure-Patient Inst. Decision time for Depature: 16:03 Referrals: NO,LOCAL PHYSICIAN (PCP/Family) Primary Care Physician Scripts Cefuroxime Axetil (Cefuroxime) 250 Mg Tablet 250 MG PO BID, #10 TAB Prov: GIA BRYAN SENIOR ELECTRICAL ENGINEER 07/21/18 GIA BRYAN SENIOR ELECTRICAL ENGINEER Jul 21, 2018 14:15
[2018-07-21 14:27] LABS: BASOPHILS % (AUTO) 0 % (0-10); EOSINOPHILS # (AUTO) 0.1 10^3/uL (0.0-0.3); EOSINOPHILS % (AUTO) 1 % (0-10); HEMATOCRIT 39 % (35-52); HEMOGLOBIN 13.5 G/DL (11.5-16.0); LYMPHOCYTES # (AUTO) 2.8 X 10^3 (1.0-4.0); LYMPHOCYTES % (AUTO) 23 % (12-44); MEAN CORPUSCULAR HEMOGLOBIN 30 PG (25-34); MEAN CORPUSCULAR HGB CONC 34 G/DL (32-36); MEAN CORPUSCULAR VOLUME 86 FL (80-99); MEAN PLATELET VOLUME 9.9 FL (7.4-10.4); MONOCYTES # (AUTO) 0.8 X 10^3 (0.0-1.0); MONOCYTES % (AUTO) 7 % (0-12); NEUTROPHILS # (AUTO) 8.6 X 10^3 (1.8-7.8); NEUTROPHILS % (AUTO) 69 % (42-75); PLATELET COUNT 300 10^3/uL (130-400); RED CELL DISTRIBUTION WIDTH 13.2 % (10.0-14.5); WHITE BLOOD COUNT 12.3 10^3/uL (4.3-11.0)
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
--- OUTSIDE RECORDS SUMMARY | 2018-07-21 14:34 | XMS REPORT | Continuity of Care Document ---
Author Organization Unknown Address Unknown Allergies Active Description Code Type Severity Reaction Onset Reported/Identified Relationship to Patient Clinical Status Yes No Known Drug Allergies [id number] Drug Allergy Unknown N/A 08/14/2015 Yes morphine [id number] Drug Allergy Unknown N/A 07/21/2018 Medications There is no data. Problems Date [...] LEO T Ot N83.20 07/13/2015 SÁNCHEZ BARAHONA INSULATION MECHANIC Ot N83.20 07/13/2015 SÁNCHEZ BARAHONA INSULATION MECHANIC Ot R10.2 07/13/2015 SÁNCHEZ BARAHONA INSULATION MECHANIC Ot N83.20 07/13/2015 SÁNCHEZ BARAHONA INSULATION MECHANIC Ot R10.2 07/20/2015 TORRI CAR Ot I88.0 07/20/2015 TORRI CAR Ot N83.20 07/20/2015 TORRI CAR Ot R10.32 07/23/2015 JUNSÁNCEHZ Adelaida INSULATION MECHANIC Ot N83.20 07/23/2015 JUNSÁNCHEZ Adelaida INSULATION MECHANIC Ot R10.2 08/14/2015 CHAUDHARI DO, MIS C [...] UNSPECIFIED OVARIAN CYSTS 02/14/2016 JUN SÁNCHEZ W INSULATION MECHANIC Ot N83.20 UNSPECIFIED OVARIAN CYSTS 02/14/2016 SÁNCHEZ BARAHONA INSULATION MECHANIC Ot R10.2 PELVIC AND PERINEAL PAIN 02/14/2016 GIA BRYAN APRN Ot F17.210 NICOTINE DEPENDENCE, CIGARETTES, UNCOMPL 02/14/2016 GIA BRYAN GLOBAL PROCESS OWNER Ot R10.2 PELVIC AND PERINEAL PAIN 02/14/2016 GIA BRYAN GLOBAL PROCESS OWNER Ot R10.30 LOWER ABDOMINAL PAIN, UNSPECIFIED 02/15/2016 GIA BRYAN GLOBAL PROCESS OWNER Ot F17.210 NICOTINE DEPENDENCE, CIGARETTES, UNCOMPL 02/15/2016 GIA BRYAN GLOBAL PROCESS OWNER Ot R10.2 PELVIC AND PERINEAL PAIN 02/15/2016 GIA BRYAN GLOBAL PROCESS OWNER Ot R10.30 LOWER ABDOMINAL PAIN, UNSPECIFIED 02/20/2016 SÁNCHEZ BARAHONA INSULATION MECHANIC Ot N83.20 UNSPECIFIED OVARIAN CYSTS 02/20/2016 SÁNCHEZ BARAHONA INSULATION MECHANIC Ot R10.2 PELVIC AND PERINEAL PAIN 02/20/2016 GIA BRYAN GLOBAL PROCESS OWNER Ot F17.210 NICOTINE DEPENDENCE, CIGARETTES, UNCOMPL 02/20/2016 GIA BRYAN GLOBAL PROCESS OWNER Ot R10.2 PELVIC AND PERINEAL PAIN 02/20/2016 BRYAN, PETER J GLOBAL PROCESS OWNER Ot R10.30 LOWER ABDOMINAL PAIN, UNSPECIFIED 02/21/2016 GIA BRYAN GLOBAL PROCESS OWNER Ot F17.210 NICOTINE DEPENDENCE, CIGARETTES, UNCOMPL 02/21/2016 GIA BRYAN APRN Ot R10.2 PELVIC AND PERINEAL PAIN 02/21/2016 GIA BRYAN GLOBAL PROCESS OWNER Ot R10.30 LOWER ABDOMINAL PAIN, UNSPECIFIED 02/28/2016 GIA BRYAN GLOBAL PROCESS OWNER Ot F17.210 NICOTINE DEPENDENCE, CIGARETTES, UNCOMPL 02/28/2016 GIA BRYAN GLOBAL PROCESS OWNER Ot R10.2 PELVIC AND PERINEAL PAIN 02/28/2016 GIA BRYAN GLOBAL PROCESS OWNER Ot R10.30 LOWER ABDOMINAL PAIN, UNSPECIFIED 12/24/2016 QUICKSÁNCHEZ INSULATION MECHANIC Ot N83.20 UNSPECIFIED OVARIAN CYSTS 12/24/2016 QUICKSÁNCHEZ INSULATION MECHANIC Ot R10.2 PELVIC AND PERINEAL PAIN 12/24/2016 SÁNCHEZ BARAHONA INSULATION MECHANIC Ot N83.20 UNSPECIFIED OVARIAN CYSTS 12/24/2016 SÁNCHEZ BARAHONA INSULATION MECHANIC Ot R10.2 PELVIC AND PERINEAL PAIN 12/24/2016 [...] AND CONDITIONS COMPL PREG/C 12/24/2016 GIA BRYAN GLOBAL PROCESS OWNER Ot R11.2 NAUSEA WITH VOMITING, UNSPECIFIED 12/24/2016 GIA BRYAN GLOBAL PROCESS OWNER Ot Z3A.15 15 WEEKS GESTATION OF 12/24/2016 GIA BRYAN APRN Ot Z87.2 PERSONAL HISTORY OF DISEASES OF THE SKIN 12/24/2016 BRYANGIA LINO Vin GLOBAL PROCESS OWNER Ot Z87.42 PERSONAL HISTORY OF OTH DISEASES OF THE 02/17/2017 WATSON MIS Ot Z36.87 ENCOUNTER FOR SCREENING FOR UN 02/17/2017 CHAUDHARI MIS Ot Z3A.22 22 WEEKS GESTATION OF 02/25/2017 ÓSCAR BOYLE, DYLAN Pagan Ot N20.0 CALCULUS OF KIDNEY 02/25/2017 DYLAN [...] Ot Z3A.26 26 WEEKS GESTATION OF 03/19/2017 MIS CHAUDHARI DO Ot Z36.87 ENCOUNTER FOR SCREENING FOR UN 03/19/2017 MIS CHAUDHARI DO Ot Z3A.22 22 WEEKS GESTATION OF 04/03/2017 FENECH DO ANA S Ot N20.0 CALCULUS OF KIDNEY 04/03/2017 FENECH DO ANA S Ot O26.893 OTH RELATED CONDITIONS, THIRD 04/03/2017 FENECH DO, ANA S Ot Z3A.28 28 WEEKS GESTATION OF 04/09/2017 FENECH DO, ANA S Ot N20.0 CALCULUS OF KIDNEY 04/09/2017 FENECH DO, ANA S Ot O26.893 OTH RELATED CONDITIONS, THIRD 04/09/2017 FENECH DO, ANA S Ot Z3A.28 28 WEEKS GESTATION OF 05/06/2017 MIS CHAUDHARI DO Ot O36.5930 MATERN CARE FOR OTH OR SUSP POOR FETL GR 05/06/2017 MIS CHAUDHARI DO Ot Z3A.35 35 WEEKS GESTATION OF 05/09/2017 DYLAN CANTRELL MD, Ot N13.2 HYDRONEPHROSIS WITH RENAL AND URETERAL C 05/09/2017 DYLAN CANTRELL MD, Ot 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, THIRD T 05/09/2017 DYLAN CANTRELL MD, Ot Z3A.34 34 WEEKS GESTATION OF 05/19/2017 CHAUDHARI DO MIS C Ot O36.5930 MATERN CARE FOR OTH OR SUSP POOR FETL GR 05/19/2017 CHAUDHARI DO MIS C Ot Z3A.35 35 WEEKS GESTATION OF 05/29/2017 FENECH DOANA S Ot N89.8 OTHER SPECIFIED NONINFLAMMATORY DISORDER 05/29/2017 BROCKECH DOANA S Ot O26.893 OTH RELATED CONDITIONS, THIRD 05/29/2017 BROCKECH DO ANA S Ot O47.1 FALSE LABOR AT OR AFTER 37 COMPLETED WEE 05/29/2017 CLOVIS DO ANA S Ot Z3A.38 38 WEEKS GESTATION OF 06/01/2017 DYLAN CANTRELL MD Ot O62.3 PRECIPITATE LABOR 06/01/2017 DYLAN CANTRELL MD Ot Z37.0 SINGLE LIVE 06/01/2017 DYLAN CANTRELL MD, Ot Z3A.37 37 WEEKS GESTATION OF 06/01/2017 DYLAN CANTRELL MD, Ot Z87.442 PERSONAL HISTORY OF URINARY CALCULI 06/03/2017 BROCKECH DOANA S Ot N89.8 OTHER SPECIFIED NONINFLAMMATORY DISORDER 06/03/2017 BROCKECH DOANA S Ot O26.893 OTH RELATED CONDITIONS, THIRD 06/03/2017 FENECH DOANA S Ot O47.1 FALSE LABOR AT OR AFTER 37 COMPLETED WEE 06/03/2017 BROCKECH ANA SYED S Ot Z3A.38 38 WEEKS GESTATION OF 08/25/2017 SELVIN SANTIAGO MD Ot N20.0 CALCULUS OF KIDNEY 08/25/2017 SELVIN SANTIAGO MD Ot O90.89 OTH COMPLICATIONS OF THE PUERPERIUM, NEC 08/27/2017 SELVIN SANTIAGO MD Ot Z01.818 ENCOUNTER FOR OTHER PREPROCEDURAL EXAMIN 09/01/2017 SELVIN SANTIAGO MD Ot N20.0 CALCULUS OF KIDNEY 09/02/2017 PAMELA BOYLE, SELVIN A Ot N20.0 CALCULUS OF KIDNEY 09/02/2017 PAMELA BOYLE, SELVIN A Ot N20.0 CALCULUS OF KIDNEY 03/16/2018 LEO MILLER MD Ot F32.9 MAJOR DEPRESSIVE DISORDER, SINGLE EPISOD 03/16/2018 ELO MILLER MD Ot J06.9 ACUTE UPPER RESPIRATORY INFECTION, UNSPE 03/16/2018 LEO MILLER MD Ot K21.9 GASTRO-ESOPHAGEAL REFLUX DISEASE WITHOUT 03/16/2018 LEO MILLER MD Ot R05 COUGH 03/16/2018 LEO MILLER MD Ot Z87.440 PERSONAL HISTORY OF URINARY (TRACT) INFE 03/16/2018 LEO MILLER MD Ot Z87.442 PERSONAL HISTORY OF URINARY CALCULI 03/16/2018 LEO MILLER MD Ot Z87.448 PERSONAL HISTORY OF OTHER DISEASES OF UR 03/16/2018 LEO MILLER MD Ot Z87.891 PERSONAL HISTORY OF NICOTINE DEPENDENCE 03/16/2018 LEO MILLER MD Ot Z98.890 OTHER SPECIFIED POSTPROCEDURAL STATES 03/18/2018 LEO MILLER MD Ot F32.9 MAJOR DEPRESSIVE DISORDER, SINGLE EPISOD 03/18/2018 LEO MILLER MD Ot J06.9 ACUTE UPPER RESPIRATORY INFECTION, UNSPE 03/18/2018 LEO MILLER MD Ot K21.9 GASTRO-ESOPHAGEAL REFLUX DISEASE WITHOUT 03/18/2018 LEO MILLER MD Ot R05 COUGH 03/18/2018 LEO MILLER MD Ot Z87.440 PERSONAL HISTORY OF URINARY (TRACT) INFE 03/18/2018 LEO MILLER MD Ot Z87.442 PERSONAL HISTORY OF URINARY CALCULI 03/18/2018 LEO MILLER MD Ot Z87.448 PERSONAL HISTORY OF OTHER DISEASES OF UR 03/18/2018 LEO MILLER MD T Ot Z87.891 PERSONAL HISTORY OF NICOTINE DEPENDENCE 03/18/2018 ANGELA BOYLE, LEO Michelle Granados Z98.890 OTHER SPECIFIED POSTPROCEDURAL STATES Procedures Code Description Performed By Performed On [id number] DIVISION OF FEMALE PERINEUM, EXTERNAL AP 05/30/2017 [id number] DELIVERY OF PRODUCTS OF CONCEPTION, EXTE 05/30/2017 Results Test Result Range Urine beta human [...] in urine sediment by light microscopy FEW ERCIKA PHOSPHATE NRG Complete blood count (CBC) with [...] identification in genital specimen by aerobe culture [id number] NR Neisseria gonorrhoeae DNA detection by probe and [...] toxic granules detection by light microscopy 1+ [facility] Comprehensive metabolic panel - 02/24/17 10:54 Serum [...] ABO+Rh group BN NRG Transfusion band number [id number] NRG Blood group antibody screen NEGATIVE NRG Methicillin resistant Staphylococcus aureus (MRSA) screening culture - 15:00 Methicillin resistant Staphylococcus aureus (MRSA) screening culture NEG NRG Measurement of weight of kidney stone - 05/08/17 15:51 Measurement of weight of kidney stone 12 NRG Kidney stone composition determination SEE FOOTNOTE NRG Count of number of calculi 1 NRG Size of stone 1 to 4 NRG Complete urinalysis with reflex to culture - 05/29/17 00:30 Urine color determination YELLOW NRG Urine clarity determination SLIGHTLY CLOUDY NRG Urine pH measurement by test strip 6 5-9 Specific gravity of urine by test strip 1.025 1.016- 1.022 Urine protein assay by test strip, semi-quantitative 2+ NEGATIVE Urine glucose detection by automated test strip NEGATIVE NEGATIVE Erythrocytes detection in urine sediment by light microscopy 3+ NEGATIVE Urine ketones detection by automated test strip 4+ NEGATIVE Urine nitrite detection by test strip [...] urine sediment by light microscopy MODERATE NRG Squamous epithelial cells detection in urine sediment by light microscopy 10-25 NRG Crystals detection in urine sediment by light microscopy NONE NRG Casts detection in urine sediment by light microscopy PRESENT NRG Mucus detection in urine sediment by light microscopy SMALL NRG Complete urinalysis with reflex to culture YES NRG Hyaline casts detection in urine sediment by light microscopy RARE NRG Bacterial urine culture - 05/29/17 00:30 URINE CULTURE RESULTS <10,000/ML NRG Complete blood count (CBC) with automated white blood cell (WBC) differential - 05/30/17 09:10 Blood leukocytes automated count (number/volume) 12.9 10*3/uL 4.3-11.0 Blood erythrocytes automated count (number/volume) 4.13 10*6/uL 4.35-5.85 Venous blood hemoglobin measurement (mass/volume) 12.8 g/dL 11.5-16.0 Blood hematocrit (volume fraction) 37 % 35-52 Automated erythrocyte mean corpuscular volume 88 [foz_us] 80-99 Automated erythrocyte mean corpuscular hemoglobin (mass per erythrocyte) 31 pg 25-34 Automated erythrocyte mean corpuscular hemoglobin concentration measurement ( mass/volume) 35 g/dL 32-36 Automated erythrocyte distribution width ratio 13.7 % 10.0-14.5 Automated blood platelet count (count/volume) 294 10*3/uL 130-400 Automated blood platelet mean volume measurement 11.2 [foz_us] 7.4-10.4 Automated blood neutrophils/100 leukocytes 66 % 42-75 Automated blood lymphocytes/100 leukocytes 25 % 12-44 Blood monocytes/100 leukocytes 8 % 0-12 Automated blood eosinophils/100 leukocytes 1 % 0-10 Automated blood basophils/100 leukocytes 1 % 0-10 Blood neutrophils automated count (number/volume) 8.5 10*3 1.8-7.8 Blood lymphocytes automated count (number/volume) 3.2 10*3 1.0-4.0 Blood monocytes automated count (number/volume) 1.0 10*3 0.0-1.0 Automated eosinophil count 0.1 10*3/uL 0.0-0.3 Automated blood basophil count (count/volume) 0.1 10*3/uL 0.0-0.1 Blood type T Indirect antibody screen panel - 05/30/17 09:10 ABO+Rh group BN [facility] Transfusion band number [id number] [facility] Blood group antibody screen NEGATIVE [facility] [id number] - 05/30/17 09:10 [id number] SPECIMEN AVAILABLE [facility] CD3+CD4+ (T4 helper) cells/100 cells in blood - 08/03/17 11:42 Timed urine calcium measurement (mass/volume) 174 % < 250 Urine oxalate detection 25 < 45 Urine uric acid measurement (mass/volume) 855 % < 700 Urine citrate measurement (mass/volume) 477 % > 320 Urine pH measurement 6.2 5.5-7.0 24 hour urine specimen volume measurement 1.23 % > 2.00 Sodium urate/total calculus mass ratio by infrared spectroscopy 186 % < 200 Sulfites [presence] in urine by test strip 29 < 30 Urine phosphate measurement (mass/volume) 1095 % < 1100 Urine magnesium measurement (mass/volume) 110 % > 60 Urine calcium oxalate measurement 1.49 < 2.00 Urine calcium phosphate crystals detection by computer assisted method 2.77 < 2.00 24 hour urine sodium urate (saturation fraction) 7.39 < 2.00 Triple phosphate crystals detection in urine sediment by light microscopy 3.45 < 75.00 24 hour urine uric acid (saturation fraction) 1.90 < 2.00 Urine ammonium measurement 45 % 14-62 Urine potassium measurement 41 % 19-135 24 hour urine creatinine measurement (mass/time) 1559 % 600-1800 Clinical braid maker review of results See Below NRG Methicillin resistant Staphylococcus aureus (MRSA) screening culture - 06:43 Methicillin resistant Staphylococcus aureus (MRSA) screening culture NEG NRG Urine beta human chorionic gonadotropin (hCG) measurement - 09/01/17 06:45 Urine beta human chorionic gonadotropin (hCG) measurement NEGATIVE NEGATIVE Influenza virus A and B antigen detection - 03/16/18 11:37 FLU RESULT NEGATIVE FOR INFLUENZA A AND B ANTIGENS BY IA NRG Encounters ACCT No. Visit Date/Time Discharge Status Pt. Type Provider Facility Loc./Unit Complaint [id number] 03/16/2018 10:38:00 03/16/2018 12:33:00 DIS Emergency LEO MILLER MD [facility] ER COUGH/CONGESTION FEVER [id number] 09/01/2017 06:33:00 09/01/2017 09:18:00 DIS Outpatient SELVIN SANTIAGO MD [facility] SDC RIGHT RENAL STONE [id number] 08/26/2017 05:36:00 08/26/2017 23:59:59 CLS Outpatient SELVIN SANTIAGO MD [facility] PREOP RIGHT RENAL STONE [id number] 08/03/2017 11:23:00 08/03/2017 23:59:59 CLS Outpatient SELVIN SANTIAGO MD [facility] RAD STONES [id number] 05/30/2017 09:53:00 06/01/2017 14:50:00 DIS Inpatient DYLAN CANTRELL MD [facility] LDRP CONTRACTIONS [id number] 05/29/2017 00:15:00 05/29/2017 02:00:00 DIS Outpatient ANA BRANNON DO [facility] WSo CONTRACTIONS,FLUID LEAKAGE [id number] 05/06/2017 15:05:00 05/09/2017 13:00:00 DIS Inpatient DYLAN CANTRELL MD [facility] LDRP SEVERE LEFT HYDRONEPHROSIS [id number] 05/05/2017 12:52:00 05/05/2017 23:59:59 CLS Outpatient MIS CHAUDHARI DO [facility] RAD Z34.93 THIRD TRIMESTER [id number] 04/03/2017 12:50:00 04/03/2017 18:55:00 DIS Outpatient ANA BRANNON DO [facility] WSo KIDNEY STONE [id number] 03/13/2017 13:48:00 03/16/2017 11:27:00 DIS Inpatient MIS CHAUDHARI DO [facility] LDRP KIDNEY STONES [id number] 02/24/2017 10:15:00 02/25/2017 08:00:00 DIS Inpatient DYLNA CANTRELL MD [facility] LDRP ABD PAIN,BLEEDING, NEPHROLITHIASIS [id number] 02/05/2017 09:52:00 02/05/2017 23:59:59 CLS Outpatient MIS CHAUDHARI DO [facility] RAD MEASUREMENTS SURVEY [id number] 12/24/2016 15:35:00 12/24/2016 18:29:00 DIS Emergency GIA BRYAN APRN [facility] ER DIZZINESS;15 WEEKS [id number] 02/14/2016 14:15:00 02/14/2016 16:55:00 DIS Emergency GIA BRYAN GLOBAL PROCESS OWNER [facility] ER LOW ABD PAIN [id number] 08/21/2015 06:00:00 08/21/2015 23:59:59 CLS Outpatient MIS CHAUDHARI DO [facility] SDC LEFT OVARIAN CYST [id number] 08/14/2015 08:37:00 08/14/2015 09:44:00 DIS Outpatient MIS CHAUDHARI DO [facility] PREOP LEFT OVARIAN CYCT [id number] 07/11/2015 10:35:00 07/11/2015 23:59:59 CLS Outpatient SÁNCHEZ BARAHONA [facility] RAD PELVIC PAIN,OVARIAN CYST [id number] 07/03/2015 11:57:00 07/03/2015 16:33:00 DIS Emergency TORRI CAR [facility] ER ABD PAIN [id number] 07/02/2015 11:15:00 07/02/2015 15:09:00 DIS Emergency ANGELA BOYLE, LEO Martinez [facility] ER LOWER ABD PAIN [id number] 07/21/2018 14:01:00 ACT Emergency GIA BRYAN APRN [facility] ER ABD/VAG PAIN [id number] 12/07/2015 11:25:07 12/07/2015 23:59:59 CLS Outpatient Adelaida Sahu [id number] 08/17/2017 16:20:00 08/17/2017 23:59:59 CLS Outpatient JULIANNE FLORES [facility]
[2018-07-21] MEDS ORDERED: AZITHROMYCIN 250 MG TAB (ZITHROMAX) PO SCH (14:45)
[2018-07-21] MEDS ORDERED: cefTRIAXone FOR IV USE 1,000 MG in WATER (STERILE) FOR INJECTION 10 ML IV ONE (14:45)
[2018-07-21 14:51] LABS: BUN/CREATININE RATIO 25; CALCIUM 9.8 MG/DL (8.5-10.1); CARBON DIOXIDE 24 MMOL/L (21-32); CHLORIDE 110 MMOL/L (98-107); CREATININE SERUM 0.75 MG/DL (0.60-1.30); GFR ESTIMATED > 60; GLUCOSE 89 MG/DL (70-105); POTASSIUM 3.9 MMOL/L (3.6-5.0); SODIUM 140 MMOL/L (135-145)
--- NOTE | 2018-07-21 15:12 | Diagnostic Imaging Report ---
PROCEDURE: CT urinary tract, rule out kidney stone. TECHNIQUE: Multiple contiguous axial images were obtained through the abdomen and pelvis without the use of intravenous contrast. Auto Exposure Controls were utilized during the CT exam to meet ALARA standards for radiation dose reduction. INDICATION: History of nephrolithiasis and vaginal discomfort. COMPARISON: The study compared 08/03/2017. FINDINGS: On previous exam, there was a 4 mm intrarenal nonobstructing stone within the right renal lower pole calyx. This is no longer identified. No visualized stone along the course of the right ureter or within the urinary bladder. No perinephric or periureteric edema. Left kidney unobstructed and stable and unremarkable. Liver, spleen, adrenals, pancreas and gallbladder all unremarkable. There is no bowel obstruction. Uterus, adnexa and urinary bladder unremarkable. No perineal abnormality. No inflammatory process, abscess, hematoma or fluid collection. The osseous structures unremarkable. IMPRESSION: 1. Interval resolution of previous right renal calculus. No residual or recurrent stone disease. No obstructive phenomena, inflammatory process or acute abnormalities identified and there has been no adverse development. 2. No findings to explain the presenting complaints. Dictated by: Dictated on workstation # [id number]
[2018-07-21 15:45] LABS: BILIRUBIN,URINE NEGATIVE (NEGATIVE); CLARITY,URINE SLIGHTLY CLOUDY; COLOR,URINE YELLOW; GLUCOSE, URINE (UA) NEGATIVE (NEGATIVE); KETONES,URINE NEGATIVE (NEGATIVE); LEUKOCYTE ESTERASE ,URINE 3+ (NEGATIVE); NITRITE,URINE POSITIVE (NEGATIVE); PH,URINE 6.5 (5-9); PROTEIN,URINE 2+ (NEGATIVE); UROBILINOGEN,URINE NORMAL (NORMAL)
[2018-07-21 15:58] LABS: BACTERIA,URINE MODERATE /HPF; RBC,URINE 50-100 /HPF; WBC,URINE TNTC /HPF
[2018-07-21] MEDS ORDERED: CEFU250T80 PO (16:02)
[2018-07-21 16:20] VITALS: BP 123/68
== END 2018-07-21 16:20 | disposition home or self-care (01) ==
LOC: EDUNIT# 13:59 → ER 14:01
DX: N39.0 Urinary tract infection, site not specified (principal); K21.9 Gastro-esophageal reflux disease without esophagitis; F32.9 Major depressive disorder, single episode, unspecified; Z88.5 Allergy status to narcotic agent; Z87.891 Personal history of nicotine dependence; Z98.890 Other specified postprocedural states; Z87.448 Personal history of other diseases of urinary system
CPT/HCPCS: 36415; 74176; 80048; 81000; 84703; 85025; 87070; 87077; 87088; 87205; 87210; 87491; 87591

== ENCOUNTER 2018-11-30 09:40 | Emergency (ER) | payer MEDICAID ==
[~2018-11-30] VITALS: Ht 172.7 cm; Wt 72.6 kg
[~2018-11-30 09:40] MED LIST changes: +CEFU250T80 PO
[2018-11-30 10:33] LABS: BASOPHILS % (AUTO) 0 % (0-10); EOSINOPHILS # (AUTO) 0.2 10^3/uL (0.0-0.3); EOSINOPHILS % (AUTO) 2 % (0-10); HEMATOCRIT 38 % (35-52); HEMOGLOBIN 13.1 G/DL (11.5-16.0); LYMPHOCYTES # (AUTO) 2.8 X 10^3 (1.0-4.0); LYMPHOCYTES % (AUTO) 40 % (12-44); MEAN CORPUSCULAR HEMOGLOBIN 30 PG (25-34); MEAN CORPUSCULAR HGB CONC 34 G/DL (32-36); MEAN CORPUSCULAR VOLUME 88 FL (80-99); MEAN PLATELET VOLUME 10.7 FL (7.4-10.4); MONOCYTES # (AUTO) 0.5 X 10^3 (0.0-1.0); MONOCYTES % (AUTO) 8 % (0-12); NEUTROPHILS # (AUTO) 3.5 X 10^3 (1.8-7.8); NEUTROPHILS % (AUTO) 50 % (42-75); PLATELET COUNT 258 10^3/uL (130-400); RED CELL DISTRIBUTION WIDTH 12.8 % (10.0-14.5); WHITE BLOOD COUNT 6.9 10^3/uL (4.3-11.0)
[2018-11-30 10:44] LABS: ALANINE AMINOTRANSFERASE 16 U/L (0-55); ALBUMIN 4.2 GM/DL (3.2-4.5); ALKALINE PHOSPHATASE 66 U/L (40-136); BILIRUBIN,TOTAL 0.7 MG/DL (0.1-1.0); BUN/CREATININE RATIO 21; CALCIUM 9.1 MG/DL (8.5-10.1); CARBON DIOXIDE 23 MMOL/L (21-32); CHLORIDE 109 MMOL/L (98-107); GFR ESTIMATED > 60; GLUCOSE 94 MG/DL (70-105); SODIUM 139 MMOL/L (135-145)
--- NOTE | 2018-11-30 10:44 | ED GU-Female ---
General Chief Complaint: Abdominal/GI Problems Stated Complaint: BLOOD IN URINE RIGHT FLANK PAIN Nursing Triage Note: AMB TO ED C/O INTERMITTEN R SIDE ABD PAIN WITH BLOOD IN URINE. HAS KIDNEY STONE 18 MONTHS AGO THAT HAD TO BE LITHROTRISPY Nursing Sepsis Screen: No Definite Risk Source: patient Exam Limitations: no limitations History of Present Illness Date Seen by Provider: Nov 30, 2018 Time Seen by Provider: 10:43 Initial Comments Pain In the right flank for one week, intermittent blood in the urine. History of kidney stone with lithotripsy Timing/Duration: just prior to arrival Severity/Quality: moderate Radiation: none Activities at Onset: none Associated Symptoms: lower back pain Allergies and Home Medications Allergies Coded Allergies: morphine (Verified Allergy, Unknown, 07/21/18) Home Medications No Active Prescriptions or Reported Meds Patient Home Medication List Home Medication List Reviewed: Yes Review of Systems Review of Systems Constitutional: see HPI EENTM: see HPI Respiratory: no symptoms reported Cardiovascular: no symptoms reported Genitourinary: no symptoms reported Musculoskeletal: no symptoms reported Skin: no symptoms reported Psychiatric/Neurological: No Symptoms Reported Endocrine: No Symptoms Reported Past Mdhtujx-Ppqubt-Ivotpm Hx Patient Social History Alcohol Use: Denies Use Number of Drinks Today: II Alcohol Beverage of Choice: Other Recreational Drug Use: No Smoking Status: Former Smoker Type Used: Cigarettes Former Smoker, Quit: Jan 11, 2017 Recent Foreign Travel: No Contact w/Someone Who Travel: No Recent Infectious Disease Expo: No Recent Hopitalizations: No Immunizations Up To Date Tetanus Booster (TDap): Unknown PED Vaccines UTD: Yes Date of Influenza Vaccine: Jan 11, 2015 Seasonal Allergies Seasonal Allergies: No Past Medical History Surgeries: Yes (L WRIST, RIGHT EAR RECONTRUCTION, LITHROTRIPSY ) Abdominal, Ear Surgery, Orthopedic Respiratory: No Cardiac: Yes (SMALL HEART MURMUR) Neurological: No Reproductive Disorders: Yes (left ovarian cyst) Female Reproductive Disorders: Menstrual Problems, Ovarian Cyst Sexually Transmitted Disease: No HIV/AIDS: No Genitourinary: Yes Kidney Stones, UTI-Chronic Gastrointestinal: Yes (REFLUX WHEN EATS SPICY FOOD ) Gastroesophageal Reflux Musculoskeletal: Yes Chronic Back Pain Endocrine: No HEENT: No Loss of Vision: Denies Hearing Impairment: Hard of Hearing Cancer: No Psychosocial: Yes Depression Integumentary: Yes Eczema Blood Disorders: No Adverse Reaction/Blood Tranf: No Family Medical History Patient reports no known family medical history. No Pertinent Family Hx Physical Exam Vital Signs Vital Signs - First Documented 11/30/18 09:49 Temp 97.7 Pulse 71 B/P (MAP) 115/76 (89) Pulse Ox 71 Capillary Refill : Less Than 3 Seconds Height, Weight, BMI Height: 5'8.00" Weight: 160lbs. 0.0oz. 72.329385vd; 20.7 BMI Method:Stated General Appearance: WD/WN, no apparent distress HEENT: PERRL/EOMI, normal ENT inspection Neck: non-tender, full range of motion Respiratory: no respiratory distress, no accessory muscle use Gastrointestinal: normal bowel sounds, soft, tenderness Neurologic/Psychiatric: alert, normal mood/affect, oriented x 3 Skin: normal color, warm/dry Progress/Results/Core Measures Suspected Sepsis Recent Fever Within 48 Hours: No Infection Criteria Present: None New/Unexplained Altered Menta: No Sepsis Screen: No Definite Risk SIRS Temperature:97.7 Pulse: 71 Respiratory Rate: Laboratory Tests 11/30/18 09:56: White Blood Count 6.9 Blood Pressure 115 /76 Mean: 89 Laboratory Tests 11/30/18 09:56: Creatinine 0.70, Platelet Count 258, Total Bilirubin 0.7 Results/Orders Lab Results Laboratory Tests Test 11/30/18 09:56 11/30/18 10:35 Range/Units White Blood Count 6.9 4.3-11.0 10^3/uL Red Blood Count 4.39 4.35-5.85 10^6/uL Hemoglobin 13.1 11.5-16.0 G/DL Hematocrit 38 35-52 % Mean Corpuscular Volume 88 80-99 FL Mean Corpuscular Hemoglobin 30 25-34 PG Mean Corpuscular Hemoglobin Concent 34 32-36 G/DL Red Cell Distribution Width 12.8 10.0-14.5 % Platelet Count 258 130-400 10^3/uL Mean Platelet Volume 10.7 H 7.4-10.4 FL Neutrophils (%) (Auto) 50 42-75 % Lymphocytes (%) (Auto) 40 12-44 % Monocytes (%) (Auto) 8 0-12 % Eosinophils (%) (Auto) 2 0-10 % Basophils (%) (Auto) 0 0-10 % Neutrophils # (Auto) 3.5 1.8-7.8 X 10^3 Lymphocytes # (Auto) 2.8 1.0-4.0 X 10^3 Monocytes # (Auto) 0.5 0.0-1.0 X 10^3 Eosinophils # (Auto) 0.2 0.0-0.3 10^3/uL Basophils # (Auto) 0.0 0.0-0.1 10^3/uL Sodium Level 139 135-145 MMOL/L Potassium Level 4.0 3.6-5.0 MMOL/L Chloride Level 109 H 98-107 MMOL/L Carbon Dioxide Level 23 21-32 MMOL/L Anion Gap 7 5-14 MMOL/L Blood Urea Nitrogen 15 7-18 MG/DL Creatinine 0.70 0.60-1.30 MG/DL Estimat Glomerular Filtration Rate > 60 BUN/Creatinine Ratio 21 Glucose Level 94 70-105 MG/DL Calcium Level 9.1 8.5-10.1 MG/DL Corrected Calcium 8.9 8.5-10.1 MG/DL Total Bilirubin 0.7 0.1-1.0 MG/DL Aspartate Amino Transf (AST/SGOT) 12 5-34 U/L Alanine Aminotransferase (ALT/SGPT) 16 0-55 U/L Alkaline Phosphatase 66 40-136 U/L Total Protein 7.0 6.4-8.2 GM/DL Albumin 4.2 3.2-4.5 GM/DL Serum Test, Qualitative NEGATIVE NEGATIVE Urine Color YELLOW Urine Clarity CLEAR Urine pH 6.5 5-9 Urine Specific [place] 1.015 L 1.016-1.022 Urine Protein NEGATIVE NEGATIVE Urine Glucose (UA) NEGATIVE NEGATIVE Urine Ketones NEGATIVE NEGATIVE Urine Nitrite NEGATIVE NEGATIVE Urine Bilirubin NEGATIVE NEGATIVE Urine Urobilinogen NORMAL NORMAL MG/DL Urine Leukocyte Esterase 1+ H NEGATIVE Urine RBC (Auto) NEGATIVE NEGATIVE Urine RBC RARE /HPF Urine WBC 0-2 /HPF Urine Squamous Epithelial Cells 2-5 /HPF Urine Crystals NONE /LPF Urine Bacteria TRACE /HPF Urine Casts NONE /LPF Urine Mucus NEGATIVE /LPF Urine Culture Indicated NO My Orders Orders - [employer]IA BRYAN [employer] Ketorolac Injection (Toradol Injection) (11/30/18 10:45) Ct Abd/Pelvis Wo(Kidney Stone) (11/30/18 10:38) Abdomen/Kub 1view (11/30/18 10:38) Ns Iv 1000 Ml (Sodium Chloride 0.9%) (11/30/18 10:45) Medications Given in ED Current Medications Medications Dose Ordered Sig/Ayad Route Start Time Stop Time Status Last Admin Dose Admin Ketorolac Tromethamine 30 mg ONCE ONCE IVP 11/30/18 10:45 11/30/18 10:51 DC 11/30/18 11:24 30 MG Vital Signs/I&O 11/30/18 09:49 Temp 97.7 Pulse 71 B/P (MAP) 115/76 (89) Pulse Ox 71 Capillary Refill : Less Than 3 Seconds Blood Pressure Mean: 89 Departure Impression Primary Impression: nonspecific right lower quadrant pain Disposition: HOME, SELF-CARE Condition: Stable Departure-Patient Inst. Decision time for Depature: 11:46 Referrals: DELL ASENCIO MD,KE RUSSELL MD NO,LOCAL PHYSICIAN (PCP) Primary Care Physician SUJATA OSORIO ANGELA C DO STEWART, CHAD C MD Patient Instructions: Acute Abdomen (Belly Pain), Adult (DC) Add. Discharge Instructions: All discharge instructions reviewed with patient and/or family. Voiced understanding. Scripts No Active Prescriptions or Reported Meds GIA BRYAN APRN Nov 30, 2018 10:44
[2018-11-30] MEDS ORDERED: NS IV 1000 ML 1,000 ML IV SCH (10:45)
[2018-11-30] MEDS ORDERED: KETOROLAC 30 MG/ML VIAL IVP ONE (10:45)
[2018-11-30 10:46] LABS: BILIRUBIN,URINE NEGATIVE (NEGATIVE); CLARITY,URINE CLEAR; COLOR,URINE YELLOW; GLUCOSE, URINE (UA) NEGATIVE (NEGATIVE); KETONES,URINE NEGATIVE (NEGATIVE); LEUKOCYTE ESTERASE ,URINE 1+ (NEGATIVE); NITRITE,URINE NEGATIVE (NEGATIVE); PH,URINE 6.5 (5-9); PROTEIN,URINE NEGATIVE (NEGATIVE); UROBILINOGEN,URINE NORMAL (NORMAL)
[2018-11-30 11:02] LABS: BACTERIA,URINE TRACE /HPF; RBC,URINE RARE /HPF; WBC,URINE 0-2 /HPF
--- NOTE | 2018-11-30 11:36 | Diagnostic Imaging Report ---
PROCEDURE: CT urinary tract, rule out kidney stone. TECHNIQUE: Multiple contiguous axial images were obtained through the abdomen and pelvis without the use of intravenous contrast. Auto Exposure Controls were utilized during the CT exam to meet ALARA standards for radiation dose reduction. INDICATION: History of kidney stones. Right posterior flank pain radiating to the groin. Nausea. COMPARISON: 07/21/2018. FINDINGS: The lung bases are clear. The heart is normal in size. There is no pericardial effusion. The liver demonstrates no focal lesions. The spleen appears normal. The pancreas is normal. The adrenal glands appear normal. There is no hydronephrosis or hydroureter. No renal calculi are seen. The appendix is normal. There is a small hiatal hernia. Bowel loops are nondistended. There is moderate stool in the colon. No free fluid or free air is seen. No acute osseous abnormalities are seen. IMPRESSION: 1. No hydronephrosis or obstructing renal calculi are seen. 2. No appendicitis or other acute abdominal pelvic abnormality is seen. Dictated by: Dictated on workstation # [id number]
[2018-11-30 12:05] VITALS: BP 104/73
--- NOTE | 2018-11-30 12:22 | Diagnostic Imaging Report ---
INDICATION: Intermittent right-sided pain and hematuria. FINDINGS: There is a borderline prominent air-containing small bowel loop in the mid abdomen. The remaining large and small bowel appear normal. No radiopaque calculus disease. IMPRESSION: No radiodense stone is identified. The upper abdominal small bowel is air-containing and borderline ectatic, nonspecific. No overtly obstructive features. Dictated by: Dictated on workstation # [id number]
== END 2018-11-30 12:05 | disposition home or self-care (01) ==
LOC: EDUNIT# 09:40 → ER 09:42
DX: R10.31 Right lower quadrant pain (principal); K21.9 Gastro-esophageal reflux disease without esophagitis; F32.9 Major depressive disorder, single episode, unspecified; Z87.442 Personal history of urinary calculi; Z88.5 Allergy status to narcotic agent; Z87.891 Personal history of nicotine dependence
CPT/HCPCS: 36415; 74018; 74176; 80053; 81000; 84703; 85025

== ENCOUNTER 2018-12-10 12:05 | Emergency (ER) | payer MEDICAID ==
[~2018-12-10] VITALS: Ht 175.3 cm; Wt 72.6 kg
--- NOTE | 2018-12-10 12:17 | ED Abdominal Pain ---
General Chief Complaint: Abdominal/GI Problems Stated Complaint: LOWER ABD PAIN Source of Information: Patient Exam Limitations: No Limitations History of Present Illness Date Seen by Provider: Dec 10, 2018 Time Seen by Provider: 12:04 Initial Comments The patient presents to ER by private conveyance with chief complaint that at 2:00 this morning she was woken with some suprapubic pain, dysuria. No fevers chills cough. She did have a bowel movement about 45 minutes ago that was loose and watery. No history of irritable bowel or inflammatory bowel disease. She says she had pain like this before and it was a bladder infection. She took ibuprofen and Tylenol minimal relief of her symptoms. She had some nausea but none now. Allergies and Home Medications Allergies Coded Allergies: morphine (Verified Allergy, Unknown, 07/21/18) Home Medications Medroxyprogesterone Acetate 150 Mg/1 Ml Syringe, 150 MG IM ONCE, (Reported) Patient Home Medication List Home Medication List Reviewed: Yes Review of Systems Review of Systems Constitutional: No chills, No diaphoresis EENTM: No Blurred Vision, No Double Vision Respiratory: Denies Cough, Denies Shortness of Air Cardiovascular: Denies Chest Pain, Denies Lightheadedness Gastrointestinal: See HPI; Denies Abdomen Distended; Abdominal Pain; Denies Constipated; Diarrhea, Nausea; Denies Vomiting Genitourinary: Burning; Denies Discharge Musculoskeletal: No back pain, No joint pain Past Kopmkfz-Ekcokx-Etpsuq Hx Patient Social History Alcohol Use: Occasionally Uses Alcohol Beverage of Choice: Other Recreational Drug Use: No Smoking Status: Former Smoker Type Used: Cigarettes Former Smoker, Quit: Jan 11, 2017 Recent Foreign Travel: No Contact w/Someone Who Travel: No Recent Hopitalizations: No Immunizations Up To Date Tetanus Booster (TDap): Unknown PED Vaccines UTD: Yes Date of Influenza Vaccine: Jan 11, 2015 Seasonal Allergies Seasonal Allergies: No Past Medical History Surgeries: Yes (L WRIST, RIGHT EAR RECONTRUCTION, LITHROTRIPSY ) Abdominal, Ear Surgery, Orthopedic Respiratory: No Cardiac: Yes (SMALL HEART MURMUR) Neurological: No Reproductive Disorders: Yes (left ovarian cyst) Female Reproductive Disorders: Menstrual Problems, Ovarian Cyst Sexually Transmitted Disease: No HIV/AIDS: No Genitourinary: Yes Kidney Stones, UTI-Chronic Gastrointestinal: Yes (REFLUX WHEN EATS SPICY FOOD ) Gastroesophageal Reflux Musculoskeletal: Yes Chronic Back Pain Endocrine: No HEENT: No Loss of Vision: Denies Hearing Impairment: Hard of Hearing Cancer: No Psychosocial: Yes Depression Integumentary: Yes Eczema Blood Disorders: No Adverse Reaction/Blood Tranf: No Family Medical History Patient reports no known family medical history. No Pertinent Family Hx Physical Exam Vital Signs Vital Signs - First Documented 12/10/18 12:13 Temp 97.3 Pulse 75 Resp 16 B/P (MAP) 124/88 (100) Pulse Ox 98 O2 Delivery Room Air Capillary Refill : Height/Weight/BMI Height: 5'8.00" Weight: 160lbs. 0.0oz. 72.611964fm; 20.7 BMI Method:Stated General Appearance: WD/WN, mild distress HEENT: PERRL/EOMI, pharynx normal Neck: non-tender, full range of motion Respiratory: lungs clear, normal breath sounds, no respiratory distress, no accessory muscle use Cardiovascular: normal peripheral pulses, regular rate, rhythm, no edema Peripheral Pulses: 2+ Radial Pulses (R), 2+ Radial Pulses (L) Gastrointestinal: normal bowel sounds, soft, tenderness (mild, suprapubic) Back: normal inspection, no CVA tenderness Neurologic/Psychiatric: alert, oriented x 3 Progress/Results/Core Measures Results/Orders Lab Results Laboratory Tests Test 12/10/18 12:14 Range/Units Urine Color YELLOW Urine Clarity CLEAR Urine pH 6 5-9 Urine Specific [place] 1.025 H 1.016-1.022 Urine Protein 3+ H NEGATIVE Urine Glucose (UA) NEGATIVE NEGATIVE Urine Ketones NEGATIVE NEGATIVE Urine Nitrite NEGATIVE NEGATIVE Urine Bilirubin 1+ H NEGATIVE Urine Urobilinogen 4 H NORMAL MG/DL Urine Leukocyte Esterase 3+ H NEGATIVE Urine RBC (Auto) 5+ H NEGATIVE Urine RBC >100 H /HPF Urine WBC >100 H /HPF Urine Squamous Epithelial Cells 2-5 /HPF Urine Crystals NONE /LPF Urine Bacteria TRACE /HPF Urine Casts NONE /LPF Urine Mucus SMALL H /LPF Urine Culture Indicated YES My Orders Orders - TIERNEY RODRIGUEZ Ua Culture If Indicated (12/10/18 12:06) Urine Bedside (12/10/18 12:06) Urine Culture (12/10/18 12:14) Vital Signs/I&O 12/10/18 12:13 Temp 97.3 Pulse 75 Resp 16 B/P (MAP) 124/88 (100) Pulse Ox 98 O2 Delivery Room Air Departure Impression Primary Impression: UTI (urinary tract infection) Qualified Codes: N30.01 - Acute cystitis with hematuria Disposition: HOME, SELF-CARE Condition: Stable Departure-Patient Inst. Decision time for Depature: 12:49 Referrals: NO,LOCAL PHYSICIAN (PCP/Family) Primary Care Physician Patient Instructions: Urinary Tract Infection, Adult (DC) Add. Discharge Instructions: Drink plenty of fluids. You may use AZO [id number] per the instructions on the box for pain relief from the bladder infection. It will cause your urine to turn a dark orange red color. Tylenol 1000 mg every 8 hours as needed for pain. Ibuprofen 800 mg every 8 hours as needed for pain. clean up worker the Keflex started today one capsule twice daily with food for the next week. All discharge instructions reviewed with patient and/or family. Voiced understanding. Scripts Cephalexin (Keflex) 500 Mg Capsule 500 MG PO BID for 7 Days, #14 CAP 0 Refills Prov: TIERNEY RODRIGUEZ 12/10/18 TIERNEY RODRIGUEZ Dec 10, 2018 12:17
[2018-12-10] MEDS ORDERED: MEDR150D8 IM (12:18)
[2018-12-10 12:30] LABS: CLARITY,URINE CLEAR; COLOR,URINE YELLOW; GLUCOSE, URINE (UA) NEGATIVE (NEGATIVE); KETONES,URINE NEGATIVE (NEGATIVE); LEUKOCYTE ESTERASE ,URINE 3+ (NEGATIVE); NITRITE,URINE NEGATIVE (NEGATIVE); PH,URINE 6 (5-9); PROTEIN,URINE 3+ (NEGATIVE); UROBILINOGEN,URINE 4 MG/DL (NORMAL)
[2018-12-10 12:42] LABS: BACTERIA,URINE TRACE /HPF; BILIRUBIN,URINE 1+ (NEGATIVE); RBC,URINE >100 /HPF; WBC,URINE >100 /HPF
[2018-12-10] MEDS ORDERED: CEPH-507 PO (12:52)
[2018-12-10 13:22] VITALS: BP 121/91
== END 2018-12-10 13:20 | disposition home or self-care (01) ==
LOC: EDUNIT# 12:05 → ER 12:06
DX: N39.0 Urinary tract infection, site not specified (principal); K21.9 Gastro-esophageal reflux disease without esophagitis; F32.9 Major depressive disorder, single episode, unspecified; Z88.5 Allergy status to narcotic agent; Z87.440 Personal history of urinary (tract) infections; Z87.442 Personal history of urinary calculi; Z87.891 Personal history of nicotine dependence
CPT/HCPCS: 81000; 84703; 87088; 99282

== ENCOUNTER 2019-06-22 15:05 | Emergency (ER) | payer MEDICAID ==
[~2019-06-22] VITALS: Ht 172.7 cm; Wt 72.6 kg
[~2019-06-22 15:05] MED LIST changes: +MEDR150D8 IM; -TAMS0.4C98 PO; +TMSL.4C PO; -TRAM50TA2 PO; +TRM50T PO
[2019-06-22 15:56] LABS: BASOPHILS % (AUTO) 0 % (0-10); EOSINOPHILS # (AUTO) 0.1 10^3/uL (0.0-0.3); EOSINOPHILS % (AUTO) 2 % (0-10); HEMATOCRIT 41 % (35-52); HEMOGLOBIN 13.6 G/DL (11.5-16.0); LYMPHOCYTES # (AUTO) 2.4 X 10^3 (1.0-4.0); LYMPHOCYTES % (AUTO) 32 % (12-44); MEAN CORPUSCULAR HEMOGLOBIN 29 PG (25-34); MEAN CORPUSCULAR HGB CONC 34 G/DL (32-36); MEAN CORPUSCULAR VOLUME 87 FL (80-99); MEAN PLATELET VOLUME 10.3 FL (7.4-10.4); MONOCYTES # (AUTO) 0.6 X 10^3 (0.0-1.0); MONOCYTES % (AUTO) 8 % (0-12); NEUTROPHILS # (AUTO) 4.3 X 10^3 (1.8-7.8); NEUTROPHILS % (AUTO) 58 % (42-75); PLATELET COUNT 294 10^3/uL (130-400); RED CELL DISTRIBUTION WIDTH 13.1 % (10.0-14.5); WHITE BLOOD COUNT 7.5 10^3/uL (4.3-11.0)
[2019-06-22] MEDS ORDERED: KETOROLAC 30 MG/ML VIAL IVP ONE (16:00)
--- NOTE | 2019-06-22 16:04 | ED GI ---
General Chief Complaint: Abdominal/GI Problems Stated Complaint: PELVIC PAIN Nursing Triage Note: Pt amb to triage with c/o medial pelvic discomfort, nausea, et vomiting. Pt reports symptoms began on 06/19/19 as well as vaginal bleeding desccribed as "clots and spotting." Pt reports nausea becomes worse after eating. Pt denies fever or chills. A&OXO4. Sepsis Screen: No Definite Risk Source of Information: Patient Exam Limitations: No Limitations History of Present Illness Date Seen by Provider: Jun 22, 2019 Time Seen by Provider: 16:02 Initial Comments To ER with vaginal pain and suprapubic pelvic discomfort with nausea for the past 3 days. She's had some irregular vaginal bleeding and spotting. No fevers or chills. Timing/Duration: 2-3 Days Severity/Quality: Moderate Location: Suprapubic Radiation: No Radiation Activities at Onset: None Associated Symptoms: Nausea/Vomiting Allergies and Home Medications Allergies Coded Allergies: morphine (Verified Allergy, Unknown, 07/21/18) Home Medications Cephalexin 500 Mg Capsule, 500 MG PO BID Prescribed by: TIERNEY RODRIGUEZ on 12/10/18 1252 Medroxyprogesterone Acetate 150 Mg/1 Ml Syringe, 150 MG IM ONCE, (Reported) Patient Home Medication List Home Medication List Reviewed: Yes Review of Systems Review of Systems Constitutional: see HPI; No chills, No fever EENTM: No Symptoms Reported Respiratory: No Symptoms Reported Cardiovascular: No Symptoms Reported Gastrointestinal: See HPI, Abdominal Pain, Nausea Genitourinary: No Symptoms Reported Musculoskeletal: no symptoms reported Skin: no symptoms reported Psychiatric/Neurological: No Symptoms Reported Endocrine: No Symptoms Reported Hematologic/Lymphatic: No Symptoms Reported Past Hxjcemk-Ghrchs-Hauelr Hx Patient Social History Alcohol Beverage of Choice: Other Type Used: Cigarettes Former Smoker, Quit: Jan 11, 2017 2nd Hand Smoke Exposure: No Recent Foreign Travel: No Contact w/Someone Who Travel: No Recent Infectious Disease Expo: No Recent Hopitalizations: No Immunizations Up To Date Tetanus Booster (TDap): Unknown PED Vaccines UTD: Yes Date of Influenza Vaccine: Jan 11, 2015 Seasonal Allergies Seasonal Allergies: No Past Medical History Surgeries: Yes (L WRIST, RIGHT EAR RECONTRUCTION, LITHROTRIPSY, ovarian cysts) Abdominal, Ear Surgery, Orthopedic Respiratory: No Cardiac: Yes (SMALL HEART MURMUR) Neurological: No Reproductive Disorders: Yes (left ovarian cyst) Female Reproductive Disorders: Menstrual Problems, Ovarian Cyst Sexually Transmitted Disease: No HIV/AIDS: No Genitourinary: Yes Kidney Stones, UTI-Chronic Gastrointestinal: Yes (REFLUX WHEN EATS SPICY FOOD ) Gastroesophageal Reflux Musculoskeletal: Yes Chronic Back Pain Endocrine: No HEENT: No Loss of Vision: Denies Hearing Impairment: Hard of Hearing Cancer: No Psychosocial: Yes Depression Integumentary: Yes Eczema Blood Disorders: No Adverse Reaction/Blood Tranf: No Family Medical History Patient reports no known family medical history. No Pertinent Family Hx Physical Exam Vital Signs Vital Signs - First Documented 06/22/19 15:30 Temp 36.8 Pulse 78 Resp 16 B/P (MAP) 112/71 (85) Pulse Ox 98 O2 Delivery Room Air Capillary Refill : Less Than 3 Seconds Height/Weight/BMI Height: 5'9.00" Weight: 160lbs. 0.0oz. 72.704603pe; 24.00 BMI Method:Stated General Appearance: WD/WN, no apparent distress HEENT: PERRL/EOMI, normal ENT inspection Respiratory: no respiratory distress, no accessory muscle use Cardiovascular: regular rate, rhythm, no murmur Gastrointestinal: normal bowel sounds, soft, tenderness Genital/Rectal: other (pelvic exam done with Layo RN at the bedside, there is no cervical friability or cervical motion tenderness or cervical discharge.) Extremities: normal range of motion, non-tender Neurologic/Psychiatric: alert, normal mood/affect, oriented x 3 Skin: normal color, warm/dry Progress/Results/Core Measures Results/Orders Lab Results Laboratory Tests Test 06/22/19 15:40 06/22/19 15:45 06/22/19 16:40 Range/Units Urine Color YELLOW Urine Clarity CLEAR Urine pH 8.0 5-9 Urine Specific [place] 1.020 1.016-1.022 Urine Protein NEGATIVE NEGATIVE Urine Glucose (UA) NEGATIVE NEGATIVE Urine Ketones NEGATIVE NEGATIVE Urine Nitrite NEGATIVE NEGATIVE Urine Bilirubin NEGATIVE NEGATIVE Urine Urobilinogen 4.0 < = 1.0 MG/DL Urine Leukocyte Esterase NEGATIVE NEGATIVE Urine RBC (Auto) NEGATIVE NEGATIVE Urine RBC NONE /HPF Urine WBC 2-5 /HPF Urine Squamous Epithelial Cells 5-10 /HPF Urine Crystals NONE /LPF Urine Bacteria MODERATE H /HPF Urine Casts NONE /LPF Urine Mucus NEGATIVE /LPF Urine Culture Indicated NO White Blood Count 7.5 4.3-11.0 10^3/uL Red Blood Count 4.65 4.35-5.85 10^6/uL Hemoglobin 13.6 11.5-16.0 G/DL Hematocrit 41 35-52 % Mean Corpuscular Volume 87 80-99 FL Mean Corpuscular Hemoglobin 29 25-34 PG Mean Corpuscular Hemoglobin Concent 34 32-36 G/DL Red Cell Distribution Width 13.1 10.0-14.5 % Platelet Count 294 130-400 10^3/uL Mean Platelet Volume 10.3 7.4-10.4 FL Neutrophils (%) (Auto) 58 42-75 % Lymphocytes (%) (Auto) 32 12-44 % Monocytes (%) (Auto) 8 0-12 % Eosinophils (%) (Auto) 2 0-10 % Basophils (%) (Auto) 0 0-10 % Neutrophils # (Auto) 4.3 1.8-7.8 X 10^3 Lymphocytes # (Auto) 2.4 1.0-4.0 X 10^3 Monocytes # (Auto) 0.6 0.0-1.0 X 10^3 Eosinophils # (Auto) 0.1 0.0-0.3 10^3/uL Basophils # (Auto) 0.0 0.0-0.1 10^3/uL Urine Test NEGATIVE NEGATIVE Micro Results Microbiology 06/22/19 Genital Culture, Resulted Pending 06/22/19 Wet Prep - Final, Resulted My Orders Orders - GIA BRYAN APRN Cbc With Automated Diff (06/22/19 15:48) Hcg,Qualitative Urine (06/22/19 15:48) Neisseria Gonorrhea Swab (06/22/19 15:55) Chlam Dna Probe (06/22/19 15:55) Wet Prep (06/22/19 15:55) Genital Culture (06/22/19 15:55) Ed Iv/Invasive Line Start (06/22/19 15:55) Ketorolac Injection (Toradol Injection) (06/22/19 16:00) Ua Culture If Indicated (06/22/19 16:05) Us Non Ob Pelvis Comp/Transvag (06/22/19 15:55) Medications Given in ED Current Medications Medications Dose Ordered Sig/Ayad Route Start Time Stop Time Status Last Admin Dose Admin Ketorolac Tromethamine 15 mg ONCE ONCE IVP 06/22/19 16:00 06/22/19 16:01 DC 06/22/19 16:33 15 MG Vital Signs/I&O 06/22/19 15:30 Temp 36.8 Pulse 78 Resp 16 B/P (MAP) 112/71 (85) Pulse Ox 98 O2 Delivery Room Air Blood Pressure Mean: 85 Diagnostic Imaging Diagonstic Imaging: Ultrasound Comments NAME: TERESITA REEVES [facility] REC#: [id number] PT STATUS: REG ER : 1995 PHYSICIAN: GIA BRYAN APRN ADMIT DATE: 06/22/19/ER Draft Date of Exam:06/22/19 US NON OB PELVIS COMP/TRANSVAG PROCEDURE: US Non-ob pelvis comp/trans. TECHNIQUE: Multiple realtime grayscale images were obtained of the pelvis in various projections endovaginally. Transabdominal imaging was also performed. INDICATION: Pelvic pain. Abnormal pelvic bleeding. COMPARISON: None available. FINDINGS: The uterus measures 6.4 x 2.8 x 4.3 cm. The myometrium is normal in echogenicity without discrete mass. The endometrium measures up to 0.2 cm where visualized, and is normal in echogenicity. More focal thickening of the endometrium may be present at the level of the endocervical canal. The right ovary measures 3.1 x 2.0 x 2.2 cm. The left ovary measures 2.8 x 1.5 x 2.3 cm. Both ovaries are physiologic in appearance. Blood flow is seen in both ovaries on color doppler imaging. No suspicious adnexal mass or fluid collection. No free pelvic fluid. IMPRESSION: 1. Mild uniform thickening of the endometrium within the endocervical canal. This could be physiologic versus less likely neoplastic. If patient has persistent bleeding, follow-up pelvic ultrasound in six weeks is suggested for reassessment. Dictated on workstation # [id number] Dict: 06/22/191647 Trans: 06/22/191653 [facility] [id number] Interpreted by: SHARON BROOKS MD Electronically signed by: Departure Impression Primary Impression: Pelvic pain Additional Impression: Bacterial vaginosis Disposition: 01 HOME, SELF-CARE Condition: Stable Departure-Patient Inst. Decision time for Depature: 17:45 Referrals: NO,LOCAL PHYSICIAN (PCP/Family) Primary Care Physician Patient Instructions: Bacterial Vaginosis Scripts Metronidazole (Metronidazole) 500 Mg Tablet 500 MG PO BID, #14 TAB 0 Refills Prov: GIA BRYAN APRN 06/22/19 GIA BRYAN APRN Jun 22, 2019 16:04
[2019-06-22 16:31] LABS: BILIRUBIN,URINE NEGATIVE (NEGATIVE); CLARITY,URINE CLEAR; COLOR,URINE YELLOW; GLUCOSE, URINE (UA) NEGATIVE (NEGATIVE); KETONES,URINE NEGATIVE (NEGATIVE); LEUKOCYTE ESTERASE ,URINE NEGATIVE (NEGATIVE); NITRITE,URINE NEGATIVE (NEGATIVE); PROTEIN,URINE NEGATIVE (NEGATIVE)
[2019-06-22 16:42] LABS: BACTERIA,URINE MODERATE /HPF
--- NOTE | 2019-06-22 16:55 | Diagnostic Imaging Report ---
PROCEDURE: US Non-ob pelvis comp/trans. TECHNIQUE: Multiple realtime grayscale images were obtained of the pelvis in various projections endovaginally. Transabdominal imaging was also performed. INDICATION: Pelvic pain. Abnormal pelvic bleeding. COMPARISON: None available. FINDINGS: The uterus measures 6.4 x 2.8 x 4.3 cm. The myometrium is normal in echogenicity without discrete mass. The endometrium measures up to 0.2 cm where visualized, and is normal in echogenicity. More focal thickening of the endometrium may be present at the level of the endocervical canal. The right ovary measures 3.1 x 2.0 x 2.2 cm. The left ovary measures 2.8 x 1.5 x 2.3 cm. Both ovaries are physiologic in appearance. Blood flow is seen in both ovaries on color doppler imaging. No suspicious adnexal mass or fluid collection. No free pelvic fluid. IMPRESSION: 1. Mild uniform thickening of the endometrium within the endocervical canal. This could be physiologic versus less likely neoplastic. If patient has persistent bleeding, follow-up pelvic ultrasound in six weeks is suggested for reassessment. Dictated by: Dictated on workstation # [id number]
[2019-06-22] MEDS ORDERED: METR-145 PO (17:46)
[2019-06-22 17:52] VITALS: BP 116/78
== END 2019-06-22 17:52 | disposition home or self-care (01) ==
LOC: EDUNIT# 15:05 → ER 15:07
DX: N76.0 Acute vaginitis (principal); Z87.891 Personal history of nicotine dependence; Z88.5 Allergy status to narcotic agent
CPT/HCPCS: 36415; 76830; 76856; 81000; 84703; 85025; 87070; 87205; 87210; 87491; 87591